=== PATIENT | male | born 1960 | race Caucasian/White ===

== ENCOUNTER → 2018-06-17 10:48 | Outpatient (CLI) | payer BC, SELFPAY ==
--- NOTE | 2018-06-17 11:00 | XR_ITS ---
XR foot RT min 3V Ordering Physician: Alberto Trujillo MD Patient Age: 58 years: Male HISTORY: ITS.REASON: BILAT FOOT PAIN diabetic withBilateral feet pain. No injury. TECHNIQUE: Right foot 3 view Left foot 3 view COMPARISON :No studies prior to today . ======= RIGHT FOOT, Prominent severe arthritic changes at first MTP joint. Joint space narrowing, sclerosis, marginal osteophytes about this markedly narrowed arthritic joint. Subchondral cystic changes. The other toes are intact fairly well maintained with only some scant arthritic changes questioned at the PIP joint of the second toe otherwise noted. The MTP joints are intact. Metatarsals intact. Tarsals unremarkable. Adequate plantar arch. Bones well mineralized. Calcification is present insertion of Achilles tendon at posterior calcaneus noted. IMPRESSION : Right Foot.. Severe, advanced arthritic changes at first MTP joint ========= LEFT FOOT . Less pronounced arthritic changes at left first MTP joint.( Versus right) However there is narrowing and sclerosis about the first MTP joint. With Mild marginal osteophyte formation here on the left. The other toes appear intact. Remaining MTP joints intact. Metatarsals intact. There is some hypertrophic changes and associated mild cystic changes at the hypertrophic dorsal lip of the navicular. Mild sclerosis is seen here but talar the ventricular joint is fairly well maintained. Likely early arthritic changes here however. . Moderate deep millimeters length spurring is seen at the insertion Achilles tendon. Only tiny 3-4 mm plantar calcaneal spur on left. Adequate plantar arch. Unusually Prominent accessory ossicle overlying the cuboid-calcaneal articulation the left. This feature measures up to 18 mm length IMPRESSION: Arthritic changes at the first MTP joint on the left, (less pronounced than right first MTP) . Early hypertrophic lipping and mild arthritic changes at the dorsal margin of the proximal navicular. Suggesting early arthritic changes along dorsal aspect of left talonavicular joint
== END ==
PROVIDERS: PCP Internal Medicine Adolescent Medicine; Visit Provider Internal Medicine Adolescent Medicine
DX: M79.672 Pain in left foot (principal); M79.671 Pain in right foot
CPT/HCPCS: 73630

== ENCOUNTER 2019-11-14 19:08 | Observation (INO) | payer BC, SELFPAY ==
[2019-11-14 19:22] VITALS: BP 148/73; PULSE 98; RESP 17; TEMP 36.9; O2SAT 99; BMI 31.9
--- NOTE | 2019-11-14 19:30 | CT_ITS ---
PROCEDURE: CT ABDOMEN PELVIS WO CON CLINICAL INDICATION: rule out kidney stones Right flank pain with nausea and vomiting COMPARISON: No exams were available for comparison TECHNIQUE: Axial images obtained with sagittal and coronal reformats. All CT scans at the facility use one or more dose reduction, viz: automated exposure control, ma/kV adjustment per patient size (including targeted exams where dose is matched to indication, i.e. head), or iterative reconstruction technique. FINDINGS: LOWER THORAX: Coronary artery calcifications are present. ABDOMEN & PELVIS: The liver, spleen, gallbladder, the adrenal glands, and pancreas have an unremarkable unenhanced appearance. There is mild right hydronephrosis and hydroureter secondary to a 4 mm stone in the mid aspect of the right ureter at the L4-5 level. There is mild stranding of the right perinephric renal fat. No intestinal obstruction or free air. There is colonic diverticulosis throughout the colon. No evidence of appendicitis or diverticulitis. There postsurgical changes at L4-5 with prior fusion and inter pedicular screws posteriorly. IMPRESSION: 1. 4 mm obstructing stone in the mid right ureter at the L4-5 level with mild right hydroureteronephrosis and stranding of the right perinephric renal fat 2. Colonic diverticulosis Dictated by: Grover Wu MD 11/15/2019 10:34 Electronically signed by Grover Wu MD in [place] 11/15/2019 10:34
[2019-11-14 19:41] LABS: Basophils # 0.2 K/mm3 (0-0.2); Basophils % 1.1 % (0.1-2.0); Eosinophils # 0.1 K/mm3 (0.0-0.4); Eosinophils % 0.8 % (0.1-12.0); Hematocrit 49.9 % (42.0-52.0); Hemoglobin 16.9 g/dL (14.1-18.0); Lymphocytes # 1.2 K/mm3 (0.7-4.5); Lymphocytes % 8.4 % (10-50); Mean Corpuscular HGB Conc 33.8 g/dL (31.8-35.4); Mean Corpuscular Hemoglobin 31.3 pg (27.0-31.2); Mean Corpuscular Volume 92.7 fl (80-94); Mean Platelet Volume 7.1 fl (7.4-10.4); Monocytes # 0.5 K/mm3 (0.1-1.0); Monocytes % 3.8 % (1.7-9.3); Neutrophils % 85.8 % (37.0-80.0); Platelet Count 260 K/mm3 (142-424); Red Blood Count 5.38 M/mm3 (4.60-6.20); Red Cell Distribution Width 13.1 % (11.5-17.5)
[2019-11-14 19:44] LABS: Chloride 100 mmol/L (98-107); Potassium 4.3 mmoL/L (3.5-5.1); Sodium 137 mmol/L (136-145)
[2019-11-14 19:46] LABS: Alanine Aminotransferase 25 U/L (12-78); Amylase 89 U/L (30-110); Aspartate Amino Transferase 32 U/L (17-59); Blood Urea Nitrogen 22 mg/dl (9-20); Creatinine Clearance Estimated 72 mL/min (50-200); Estimated Glomerular Filt Rate 52 ml/min (>60); GFR (African American) 63 ML/MIN (>60)
[2019-11-14 19:47] LABS: Albumin Level 4.9 g/dl (3.5-5.0); Albumin/Globulin Ratio 1.8 (1.1-1.8); Alkaline Phosphatase 56 U/L (38-126); Anion Gap 14.3 mEq/L (5-15); Bilirubin,Total 0.7 mg/dl (0.2-1.3); Calcium 9.7 mg/dl (8.4-10.2); Carbon Dioxide 27 mmol/L (22.0-30.0); Globulin 2.8 g/dL (1.3-3.2); Glucose 174 mg/dl (74-100); Lipase 102 U/L (23-300); Total Protein,Serum 7.7 g/dl (6.3-8.2)
--- NOTE | 2019-11-14 19:48 | HMH.EDGENADL ---
ED Disposition Condition on Discharge: Good - Critical Care Critical Care Time: No <DuartewyattNathalia heathRanjith - Last Filed: 11/14/19 19:48> <Huang Godinez - Last Filed: 11/14/19 21:43> Clinical Impression: Renal colic on right side, Renal insufficiency, SIRS (systemic inflammatory response syndrome) Disposition: Admitted as Observation Attestation: On 11/14/19, the high probability of a clinically significant, sudden or life threatening deterioration of the following system(s) required my full and direct attention, intervention and personal management. The time I documented below is in addition to time spent performing reported procedures but includes the following listed in this critical care notation. Medical Decision Making - Medical Records Medical records reviewed: Yes: I reviewed the patient's medical records. - Alexander Inquiry Pt receiving controlled substance: No <DuartewyattRanjith heath - Last Filed: 11/14/19 19:48> - Lab Data Lab results reviewed: Yes: I reviewed the patient's lab results. Result diagrams: 11/14/19 19:05 11/14/19 19:05 - CT Data CT Scan: Abdomen, Pelvis Time Received: 21:[address] Reviewed: Yes: I have viewed the radiologist's interpretation Preliminary Findings: Abnormal (4 mm rt stone ) - Physician Consults Physician Consulted: brent Reason -: Admission <Huang Godinez Emily - Last Filed: 11/14/19 21:43> Vital Signs: 11/14/19 19:22 11/14/19 21:20 Temperature 98.5 F 98.5 F Temperature Source Oral Oral Pulse Rate [Right Brachial] 98 H 65 Respiratory Rate 17 16 Blood Pressure [Right Arm] 148/73 H 145/82 H Blood Pressure Mean [Right Arm] 98 103 Blood Pressure Source [Right Arm] Automatic Cuff Automatic Cuff Blood Pressure Position [Right Arm] Sitting Sitting 02 Sat by Pulse Oximetry 99 97 Oxygen Delivery Method Room Air Room Air - Lab Data Lab Results 11/14/19 19:05: WBC 14.0 H, RBC 5.38, Hgb 16.9, Hct 49.9, MCV 92.7, MCH 31.3 H, MCHC 33.8, RDW 13.1, Plt Count 260, MPV 7.1 L, Neut % (Auto) 85.8 H, Lymph % (Auto) 8.4 L, [place] % (Auto) 3.8, Eos % (Auto) 0.8, Baso % (Auto) 1.1, Neut # (Auto) 12.0 H, Lymph # (Auto) 1.2, [place] # (Auto) 0.5, Eos # (Auto) 0.1, Baso # (Auto) 0.2, Total Counted 100, Neutrophils % (Manual) 86 H, Lymphocytes % (Manual) 10, Monocytes % (Manual) 4, Platelet Estimate Normal, RBC Morphology Normal 11/14/19 19:05: Sodium 137, Potassium 4.3, Chloride 100, Carbon Dioxide 27, Anion Gap 14.3, BUN 22 H, Creatinine 1.40 H, Estimated Creat Clear 72, Estimated GFR 52 L, Est GFR ( Amer) 63, Glucose 174 H, Calcium 9.7, Total Bilirubin 0.7, AST 32, ALT 25, Alkaline Phosphatase 56, Total Protein 7.7, Albumin 4.9, Globulin 2.8, Albumin/Globulin Ratio 1.8, Amylase 89, Lipase 102 Orders (Tests/Meds): ED MEDICATIONS Generic Name Dose Route Start Last Admin Trade Name Freq PRN Reason Stop Dose Admin Sodium Chloride 1,000 mls @ 999 mls/hr 11/14/19 20:45 11/14/19 20:53 Sod Chlor 0.9% 1000ml Bag IV 11/14/19 21:45 999 mls/hr .Q1H1M GIBRAN Administration Tamsulosin HCl 0.4 mg 11/14/19 21:00 11/14/19 20:53 Flomax 0.4mg Capsule PO 12/14/19 20:59 0.4 mg HS GIBRAN Administration Discontinued Medications Generic Name Dose Route Start Last Admin Trade Name Freq PRN Reason Stop Dose Admin Hydromorphone HCl 1 mg 11/14/19 20:54 Dilaudid 2mg/Ml Syringe IM 11/14/19 20:55 ONCE ONE Hydromorphone HCl 1 mg 11/14/19 21:05 11/14/19 21:06 Dilaudid 2mg/Ml Syringe IV 11/14/19 21:06 1 mg ONCE ONE Administration Ketorolac Tromethamine 30 mg 11/14/19 20:31 11/14/19 20:52 Toradol 30mg/Ml Vial IV 11/14/19 20:32 30 mg ONCE ONE Administration Ondansetron HCl 4 mg 11/14/19 20:31 11/14/19 20:52 Zofran 4mg/2ml Vial IV 11/14/19 20:32 4 mg ONCE ONE Administration ORDERS Category Date Time Status CT abdomen pelvis wo con Stat Cat Scan 11/14/19 19:30 Taken General Adult HPI - General Mode of Arrival: Ambulatory Source of In
[2019-11-14 19:50] LABS: MANUAL DIFFERENTIAL MANUAL DIFFERENTIAL (MANUAL DIFF)
--- NOTE | 2019-11-14 20:21 | PC.NURSE ---
received call from ananya zamudio to dr dominique
[2019-11-14 20:45] LABS: Lymphocytes % 10 % (10-50); Monocytes % 4 % (2-9); Neutrophils % 86 % (42-76); Platelet Estimate Normal; RBC Morphology Normal; Total Cells Counted 100
[2019-11-14 21:18] LABS: Microscopic, Urine URINE MICROSCOPIC (MICROSCOPIC)
[2019-11-14 21:20] VITALS: BP 145/82; PULSE 65; RESP 16; TEMP 36.9; O2SAT 97
[2019-11-14 21:41] LABS: Appearance,Urine CLEAR (Clear); Bilirubin,Urine Negative (Negative); Blood, Urine 3+ (Negative); Color,Urine YELLOW (Yellow); Glucose,Urine (UA) 3+ (Negative); Ketones,Urine TRACE (Negative); Leukocyte Esterase,Urine Negative (Negative); Nitrate,Urine Negative (Negative); Protein,Urine Negative (Negative); Specific Gravity, Urine 1.025 (1.005-1.030); Urobilinogen,Urine 0.2 EU/dl (0.2)
[2019-11-14 21:42] LABS: Bacteria,Urine Trace /lpf; RBC,Urine 20-50 #/hpf (0-3); Squamous Epithelial Cell,Urine Occasional #/hpf (0-5); WBC,Urine Occasional #/hpf (0-3)
[2019-11-14 21:57] VITALS: BP 135/71; PULSE 74; RESP 16; TEMP 36.9; O2SAT 98
[2019-11-14 22:00] VITALS: BP 131/79; PULSE 70; RESP 18; TEMP 36.7; O2SAT 97; BMI 32.6
--- NOTE | 2019-11-14 22:14 | PC.NURSE ---
housesmith in department and er doc asked how much longer till patient moved to a bed. she placed call to floor and they will look moni it
--- NOTE | 2019-11-14 22:25 | PC.NURSE ---
PT ARRIVED TO FLOOR VIA W/C FROM ED @ 0745.
[2019-11-14 23:05] LABS: POC Glucose,Bedside 127 (70-110)
[2019-11-15 04:00] VITALS: BP 112/68; PULSE 64; RESP 18; TEMP 36.6; O2SAT 98
--- NOTE | 2019-11-15 06:00 | PC.NURSE ---
A&O X4. PT RESTED WELL WITH EYES CLOSED THIS SHIFT. CPAP USE FOR SLEEP APNEA, BROUGHT FROM HOME. PT RESTED WELL WITH CPAP IN USE. TOLERATED RA WELL WITHOUT CPAP WHILE AWAKE. REMAINS NPO THIS AM. C/O SEVERE PAIN IN KIDNEY REGION BILATERALLY IN BACK. RATING PAIN 9/10 AT MOST. ADMIN DILAUDID X2 AND TORDOL PER MAR. PT STATES DILAUDID EASES PAIN BETTER THAN TORDOL UPON REASSESSMENTS. USE OF URINAL INDEPENDENTLY AT BEDSIDE. STRAINER IN PLACE OVER URINAL. URINE NOTED CLEAR AND DARK YELLOW IN COLOR. NO SIGNS OF STONES PASSED THUS FAR THIS SHIFT. REFUSED TEDS. VSS. REMAINS SAFE. CALL LIGHT WITHIN REACH. WILL CONTINUE TO MONITOR.
[2019-11-15 06:10] LABS: POC Glucose,Bedside 112 (70-110)
[2019-11-15 07:02] LABS: Basophils # 0.1 K/mm3 (0-0.2); Eosinophils # 0.2 K/mm3 (0.0-0.4); Lymphocytes # 1.5 K/mm3 (0.7-4.5); Monocytes # 0.7 K/mm3 (0.1-1.0); Red Cell Distribution Width 13.4 % (11.5-17.5)
[2019-11-15 07:04] LABS: Chloride 106 mmol/L (98-107)
[2019-11-15 07:05] LABS: Potassium 4.7 mmoL/L (3.5-5.1); Sodium 139 mmol/L (136-145)
[2019-11-15 07:07] LABS: Blood Urea Nitrogen 25 mg/dl (9-20); Creatinine Clearance Estimated 73 mL/min (50-200); Estimated Glomerular Filt Rate 52 ml/min (>60); GFR (African American) 63 ML/MIN (>60)
[2019-11-15 07:08] LABS: Anion Gap 9.7 mEq/L (5-15); Calcium 8.8 mg/dl (8.4-10.2); Carbon Dioxide 28 mmol/L (22.0-30.0); Glucose 127 mg/dl (74-100)
[2019-11-15 07:11] LABS: Basophils % 0.6 % (0.1-2.0); Eosinophils % 1.4 % (0.1-12.0); Hematocrit 42.1 % (42.0-52.0); Lymphocytes % 12.8 % (10-50); Mean Corpuscular HGB Conc 34.7 g/dL (31.8-35.4); Mean Corpuscular Hemoglobin 32.1 pg (27.0-31.2); Mean Corpuscular Volume 92.7 fl (80-94); Mean Platelet Volume 6.9 fl (7.4-10.4); Monocytes % 5.8 % (1.7-9.3); Neutrophils # 9.1 K/mm3 (1.8-7.8); Neutrophils % 79.3 % (37.0-80.0); Platelet Count 212 K/mm3 (142-424); Red Blood Count 4.54 M/mm3 (4.60-6.20); White Blood Count 11.4 K/mm3 (4.8-10.8)
[2019-11-15 07:12] LABS: Hemoglobin 14.6 g/dL (14.1-18.0)
--- NOTE | 2019-11-15 07:26 | HMH.PHAVTE ---
[facility] Pharmacy VTE Monitoring - Patient Demographics Admission date: 11/14/19 Report Date: 11/15/19 Time: 07:26 Allergies/Adverse Reactions: Patient Allergies Penicillins Allergy (Verified 11/14/19 19:37) codeine [From Tylenol-Codeine #3] Adverse Reaction (Intermediate, Verified 11/14/19 19:37) Hives Height: 1.65 m Weight: 88.932 kg Patient Problems: Current Active Problems Renal colic on right side (Acute) Renal insufficiency (Acute) SIRS (systemic inflammatory response syndrome) (Acute) - VTE Risk Labs: VTE Related Lab Results Hgb 14.6 g/dL (14.1-18.0) D 11/15/19 06:33 Hct 42.1 % (42.0-52.0) 11/15/19 06:33 Plt Count 212 K/mm3 (142-424) 11/15/19 06:33 BUN 25 mg/dl (9-20) H 11/15/19 06:33 Creatinine 1.40 mg/dl (0.66-1.25) H 11/15/19 06:33 Estimated Creat Clear 73 mL/min (50-200) 11/15/19 06:33 Was VTE Risk Assessment Performed: Yes VTE Score: 4 VTE Risk Level: Low Risk Clinical Trial Participant: No - Prophylaxis VTE Prophylaxis Ordered?: Yes Types of VTE Prophylaxis: TEDS Knee High
--- NOTE | 2019-11-15 07:30 | HMH.PHAINT ---
HOME MEDICATION RECONCILIATION COMPLETED [facility]
[2019-11-15 08:00] VITALS: BP 134/73; PULSE 65; PULSE 70; RESP 12; RESP 18; TEMP 36.5; O2SAT 97
--- NOTE | 2019-11-15 08:10 | HMH.HP ---
*Admission Date: 11/14/19 *Chief complaint: Flank pain *History of present illness: Yesterday patient of the sudden onset of right-sided flank pain, nausea, intractable pain. Has a history of kidney stones. Came to emergency department. Found to have evidence of hematuria, evidence of 4 mm obstructing stone on the right side, admitted for pain control and further evaluation. [facility] History I have reviewed the patient's past medical history: Yes Medical History: Reports:: Diabetes Mellitus Type 2, Hyperlipidemia, Hypertension, Myocardial Infarction Denies:: Cancer, Diabetes Mellitus Type 1, MRSA *Have you ever received a pneumonia vaccine?: No *Have you received a flu vaccine this season?: Yes Other Medical History: Reports: Arthritis Other Surgeries: Yes: No Previous Surgery, Cardiac Catheterization, Hernia Repair Amputation: No Fractures: No - *Social History Educational Level: Attended College Smoking Status: Former smoker #Yrs smoked (if former smoker): 20 Smoking End Date: 2000 Alcohol Intake: current Alcohol Intake Frequency:: holidays/special occasions only *Occupational Status:: employed Housing: house Household Members: spouse *Travel in the last 8 weeks: None Family Hx:: Cancer, Diabetes Review of Systems - Review of Systems Review of systems:: pertinent systems reviewed and negative unless documented below Meds Home Medications Medication Instructions Recorded Confirmed Type lisinopril 20 0.5 tab PO DAILY 30 Days #15 tab 07/12/18 11/15/19 History mg-hydrochlorothiazide 25 mg tablet meloxicam 15 mg tablet 15 mg PO DAILY 30 Days #30 tab 07/12/18 11/15/19 History metformin 500 mg tablet 500 mg PO BID 30 Days #60 tab 07/12/18 11/15/19 History Aspirin [Aspir 81] 81 mg PO DAILY 11/14/19 11/15/19 History Cholecalciferol (Vitamin D3) 1,000 unit PO DAILY 11/14/19 11/15/19 History [Vitamin D3 1,000 Unit Cap] Gabapentin [Gabapentin 100mg Cap] 100 mg PO BID 11/14/19 11/15/19 History Atorvastatin Calcium [Atorvastatin 40 mg PO HS 11/15/19 11/15/19 History 40mg Tab] Allergies Allergy/AdvReac Type Severity Reaction Status Date / Time Penicillins Allergy Verified 11/14/19 19:37 codeine AdvReac Intermediate Hives Verified 11/14/19 19:37 [From Tylenol-Codeine #3] Exam Vital signs and Labs for Last 24 Hours: Temp Pulse Resp BP Pulse Ox 97.8 F 64 18 112/68 98 11/15/19 04:00 11/15/19 04:00 11/15/19 04:00 11/15/19 04:00 11/15/19 04:00 Laboratory Results - last 24 hr 11/14/19 19:05: WBC 14.0 H, RBC 5.38, Hgb 16.9, Hct 49.9, MCV 92.7, MCH 31.3 H, MCHC 33.8, RDW 13.1, Plt Count 260, MPV 7.1 L, Neut % (Auto) 85.8 H, Lymph % (Auto) 8.4 L, [place] % (Auto) 3.8, Eos % (Auto) 0.8, Baso % (Auto) 1.1, Neut # (Auto) 12.0 H, Lymph # (Auto) 1.2, [place] # (Auto) 0.5, Eos # (Auto) 0.1, Baso # (Auto) 0.2, Total Counted 100, Neutrophils % (Manual) 86 H, Lymphocytes % (Manual) 10, Monocytes % (Manual) 4, Platelet Estimate Normal, RBC Morphology Normal 11/14/19 19:05: Sodium 137, Potassium 4.3, Chloride 100, Carbon Dioxide 27, Anion Gap 14.3, BUN 22 H, Creatinine 1.40 H, Estimated Creat Clear 72, Estimated GFR 52 L, Est GFR ( Amer) 63, Glucose 174 H, Calcium 9.7, Total Bilirubin 0.7, AST 32, ALT 25, Alkaline Phosphatase 56, Total Protein 7.7, Albumin 4.9, Globulin 2.8, Albumin/Globulin Ratio 1.8, Amylase 89, Lipase 102 11/14/19 21:15: Urine Color Yellow, Urine Appearance Clear, Urine pH 6.0, Ur Specific [place] 1.025, Urine Protein Negative, Urine Glucose (UA) 3+, Urine Ketones Trace, Urine Blood 3+, Urine Nitrate Negative, Urine Bilirubin Negative, Urine Urobilinogen 0.2, Ur Leukocyte Esterase Negative, Urine RBC 20-50, Urine WBC Occasional, Ur Squamous Epith Cells Occasional, Urine Bacteria Trace 11/14/19 22:58: POC Glucose 127 H 11/15/19 05:10: POC Glucose 112 H 11/15/19 06:33: WBC 11.4 H, RBC 4.54 L, Hgb 14.6 D, Hct 42.1, MCV 92.7, MCH 32.1 H, MCHC 34.7, RDW 13.4, Plt Count 212, MPV 6.9 L, Neut % (Auto) 7
[2019-11-15 11:24] LABS: POC Glucose,Bedside 161 (70-110)
[2019-11-15 16:00] VITALS: BP 128/74; PULSE 66; RESP 14; TEMP 36.6; O2SAT 98
[2019-11-15 16:22] LABS: POC Glucose,Bedside 122 (70-110)
--- NOTE | 2019-11-15 17:54 | PC.NURSE ---
Pt has reported pain in his right kidney several times this shift. He says it is sharp in nature and radiates from his right flank to right side of abdomen. He was given prn dilaudid per mar with relief noted on reassessment. He went outside for approx 15 minutes with his to get some sunshine and fresh air . Off floor consent was signed and IV wrapped per protocol. He stated the sun made him feel much better. He had one episode of vomiting around dinner time. Zofran was offered but refused. He reported feeling full rather than nauseous. Urine has been strained with no findings to report. Will continue to monitor.
--- NOTE | 2019-11-15 19:08 | PC.NURSE ---
report given to frantz
[2019-11-15 19:54] VITALS: BP 150/86; PULSE 71; RESP 18; TEMP 36.4; O2SAT 97
[2019-11-15 22:01] LABS: POC Glucose,Bedside 99 (70-110)
[2019-11-16] VITALS (12 sets, daily range): BP systolic 128–161; BP diastolic 51–104; PULSE 65–92; RESP 12–18; TEMP 36.3–43; O2SAT 92–98; BMI 32.6
[2019-11-16 05:29] LABS: POC Glucose,Bedside 98 (70-110)
--- NOTE | 2019-11-16 06:06 | PC.NURSE ---
A&O X4. PT RESTED WELL WITH EYES CLOSED T/O SHIFT. CPAP IN USE WHILE RESTING IN BED. TOLERATES RA WELL, NO SOA. BILATERAL LUNGS NOTED CLEAR UPON AUSCULTATION. URINAL AT BEDSIDE WITH STRAINER FOR USE. URINE NOTED CLEAR AND BRIGHT YELLOW IN COLOR. NO SIGN OF STONE PASSED IN STRAINER. C/O PAIN T/O SHIFT IN KIDNEY REGION. ADMINISTERED DILAUDID PER MAR FOR RELIEF X2. NO FURTHER COMPLAINTS POST ADMIN. VSS. REMAINS NPO. REFUSED SHOWER/BATH THIS AM FOR CONSULT. REFUSED TEDS. NO EDEMA NOTED. REMAINS SAFE. CALL LIGHT WITHIN REACH. WILL CONTINUE TO MONITOR.
[2019-11-16 07:04] LABS: Basophils % 0.4 % (0.1-2.0); Lymphocytes # 1.5 K/mm3 (0.7-4.5); Monocytes # 0.4 K/mm3 (0.1-1.0)
[2019-11-16 07:20] LABS: Anion Gap 10.2 mEq/L (5-15); Blood Urea Nitrogen 20 mg/dl (9-20); Calcium 8.1 mg/dl (8.4-10.2); Carbon Dioxide 24 mmol/L (22.0-30.0); Chloride 106 mmol/L (98-107); Creatinine Clearance Estimated 68 mL/min (50-200); Estimated Glomerular Filt Rate 48 ml/min (>60); GFR (African American) 58 ML/MIN (>60); Glucose 98 mg/dl (74-100); Potassium 4.2 mmoL/L (3.5-5.1); Sodium 136 mmol/L (136-145)
[2019-11-16 07:29] LABS: Eosinophils # 0.2 K/mm3 (0.0-0.4); Eosinophils % 2.2 % (0.1-12.0); Hematocrit 38.3 % (42.0-52.0); Lymphocytes % 20.9 % (10-50); Mean Corpuscular HGB Conc 33.2 g/dL (31.8-35.4); Mean Corpuscular Hemoglobin 31.4 pg (27.0-31.2); Mean Corpuscular Volume 94.6 fl (80-94); Monocytes % 4.7 % (1.7-9.3); Neutrophils # 5.3 K/mm3 (1.8-7.8); Neutrophils % 71.8 % (37.0-80.0); Platelet Count 173 K/mm3 (142-424); Red Blood Count 4.05 M/mm3 (4.60-6.20); Red Cell Distribution Width 13.2 % (11.5-17.5); White Blood Count 7.4 K/mm3 (4.8-10.8)
[2019-11-16 07:37] LABS: Hemoglobin 12.7 g/dL (14.1-18.0)
--- NOTE | 2019-11-16 08:13 | XR_ITS ---
PROCEDURE: XR KUB CLINICAL INDICATION: f/u stone Right ureteral stone follow-up, right flank pain COMPARISON: CT ABDOMEN PELVIS WO CON from 11/14/2019 FINDINGS: Prior posterior fusion at L4-5 with inter pedicular screws and connecting plates present. There are multiple pelvic calcifications on both sides which are nonspecific. No obvious renal calculi. IMPRESSION: There are multiple pelvic calcifications most of which are likely vascular in nature. One however cannot exclude ureteral calculus on the right due to the multiple calcifications at this region. Previously a stone was noted to the right of L5. That is not apparent in the same position on today's exam Dictated by: Grover Wu MD 11/16/2019 13:33 Electronically signed by Grover Wu MD in [place] 11/16/2019 13:33
--- NOTE | 2019-11-16 08:56 | HMH.ACPN2 ---
Internal Medicine - PN: Subj *Date: 11/16/19 *Time: 08:56 Interval history: Patient continues to have pain overnight. Required 2 doses of pain medication. Tolerating IV fluids, straining urine. No stones have passed as of yet. N.p.o. this morning for urology consult, appreciate their recommendations. States he is got some mild nausea. Denies fever, chest pain, shortness of breath. Still having flank pain. Exam Vital signs and Labs for Last 24 Hours: Temp Pulse Resp BP Pulse Ox 97.9 F 82 17 131/51 L 97 11/16/19 04:00 11/16/19 04:00 11/16/19 04:00 11/16/19 04:00 11/16/19 04:00 Laboratory Results - last 24 hr 11/15/19 11:07: POC Glucose 161 H 11/15/19 16:04: POC Glucose 122 H 11/15/19 21:43: POC Glucose 99 11/16/19 05:02: POC Glucose 98 11/16/19 06:27: WBC 7.4 D, RBC 4.05 L, Hgb 12.7 L D, Hct 38.3 L, MCV 94.6 H, MCH 31.4 H, MCHC 33.2, RDW 13.2, Plt Count 173, MPV 7.0 L, Neut % (Auto) 71.8, Lymph % (Auto) 20.9, [place] % (Auto) 4.7, Eos % (Auto) 2.2, Baso % (Auto) 0.4, Neut # (Auto) 5.3, Lymph # (Auto) 1.5, [place] # (Auto) 0.4, Eos # (Auto) 0.2, Baso # (Auto) 0.0 11/16/19 06:27: Sodium 136, Potassium 4.2, Chloride 106, Carbon Dioxide 24, Anion Gap 10.2, BUN 20, Creatinine 1.50 H, Estimated Creat Clear 68, Estimated GFR 48 L, Est GFR ( Amer) 58 L, Glucose 98 D, Calcium 8.1 L I & O for Last 24 hours: Intake & Output 11/13/19 11/14/19 11/15/19 11/16/19 23:59 23:59 23:59 23:59 Intake Total 2665 / 2665 Output Total 725 / 725 100 / 100 Balance 1940 / 194 -100 / -100 Weight 88.932 kg 88.9 kg Narrative: General: No acute distress, obese. - *Routine HEENT Exam Head: Present: normocephalic Eye: Present: EOMI, PERRL ENT: Present: mucous membranes moist - *Routine Neck Exam Present: supple. Absent: lymphadenopathy - *Routine Respiratory Exam Present: CTA bilaterally - *Routine Cardiovascular Exam Present: RRR - *Routine Abdominal Exam Present: soft. Absent: tenderness Comments: Interval improvement and right-sided flank pain. No CVA tenderness. No rebound or guarding. No bruising in the periumbilical area. - *Routine Extremities Exam Absent: cyanosis, clubbing, edema - *Routine Skin Exam Present: warm. Absent: rash - *Routine Neurological Exam Present: alert, oriented X3 Assessment and Plan (1) Right nephrolithiasis Current visit: Yes Status: Acute Category: Medical Code(s): N20.0 - Calculus of kidney Obstructing, uro-consulted. Continue tamsulosin, IV fluids, straining urine. Antibiotics for concern for infection. Awaiting intervention from urology. (2) Renal colic on right side Current visit: Yes Status: Acute Category: Medical Code(s): N23 - Unspecified renal colic (3) Renal insufficiency Current visit: Yes Status: Acute Category: Medical Code(s): N28.9 - Disorder of kidney and ureter, unspecified (4) Obesity (BMI 30.0-34.9) Current visit: Yes Status: Chronic Category: Medical Code(s): E66.9 - Obesity, unspecified Complicates all aspects of his care
--- NOTE | 2019-11-16 11:39 | HMH.CONS ---
*Admission Date: 11/14/19 *Reason for consult:: Right ureteral stone *History of present illness: Patient is a 59-year-old white male with right renal colic who presented to the emergency room on November 13. Patient was admitted for pain control. CT scan showed a 4 mm stone in the mid ureter with some mild right hydronephrosis and hydroureter. Creatinine was elevated to 1.4 on admission and is 1.5 today. His white count was 14,000 on admission but has decreased to normal. He has continued to have some nausea and pain while hospitalized. He states he is miserable and would like to proceed with stone management. He does have a distant history of stone disease and underwent lithotripsy 15 years ago. [facility] History Medical History: Reports:: Diabetes Mellitus Type 2, Hyperlipidemia, Hypertension, Myocardial Infarction Denies:: Cancer, Diabetes Mellitus Type 1, MRSA *Have you ever received a pneumonia vaccine?: No *Have you received a flu vaccine this season?: Yes Other Medical History: Reports: Arthritis Other Surgeries: Yes: No Previous Surgery, Cardiac Catheterization, Hernia Repair Amputation: No Fractures: No - *Social History Educational Level: Attended College Smoking Status: Former smoker #Yrs smoked (if former smoker): 20 Smoking End Date: 2000 Alcohol Intake: current Alcohol Intake Frequency:: holidays/special occasions only *Occupational Status:: employed Housing: house Household Members: spouse *Travel in the last 8 weeks: None Family Hx:: Cancer, Diabetes Review of Systems - Review of Systems Review of systems:: pertinent systems reviewed and negative unless documented below Meds Home Medications Medication Instructions Recorded Confirmed Type lisinopril 20 0.5 tab PO DAILY 30 Days #15 tab 07/12/18 11/15/19 History mg-hydrochlorothiazide 25 mg tablet meloxicam 15 mg tablet 15 mg PO DAILY 30 Days #30 tab 07/12/18 11/15/19 History metformin 500 mg tablet 500 mg PO BID 30 Days #60 tab 07/12/18 11/15/19 History Aspirin [Aspir 81] 81 mg PO DAILY 11/14/19 11/15/19 History Cholecalciferol (Vitamin D3) 1,000 unit PO DAILY 11/14/19 11/15/19 History [Vitamin D3 1,000 Unit Cap] Gabapentin [Gabapentin 100mg Cap] 100 mg PO BID 11/14/19 11/15/19 History Atorvastatin Calcium [Atorvastatin 40 mg PO HS 11/15/19 11/15/19 History 40mg Tab] Allergies Allergy/AdvReac Type Severity Reaction Status Date / Time Penicillins Allergy Verified 11/14/19 19:37 codeine AdvReac Intermediate Hives Verified 11/14/19 19:37 [From Tylenol-Codeine #3] Exam Vital signs and Labs for Last 24 Hours: Temp Pulse Resp BP Pulse Ox 97.5 F L 75 18 139/71 98 11/16/19 08:00 11/16/19 08:00 11/16/19 08:00 11/16/19 08:00 11/16/19 08:00 Laboratory Results - last 24 hr 11/15/19 16:04: POC Glucose 122 H 11/15/19 21:43: POC Glucose 99 11/16/19 05:02: POC Glucose 98 11/16/19 06:27: WBC 7.4 D, RBC 4.05 L, Hgb 12.7 L D, Hct 38.3 L, MCV 94.6 H, MCH 31.4 H, MCHC 33.2, RDW 13.2, Plt Count 173, MPV 7.0 L, Neut % (Auto) 71.8, Lymph % (Auto) 20.9, [place] % (Auto) 4.7, Eos % (Auto) 2.2, Baso % (Auto) 0.4, Neut # (Auto) 5.3, Lymph # (Auto) 1.5, [place] # (Auto) 0.4, Eos # (Auto) 0.2, Baso # (Auto) 0.0 11/16/19 06:27: Sodium 136, Potassium 4.2, Chloride 106, Carbon Dioxide 24, Anion Gap 10.2, BUN 20, Creatinine 1.50 H, Estimated Creat Clear 68, Estimated GFR 48 L, Est GFR ( Amer) 58 L, Glucose 98 D, Calcium 8.1 L I & O for Last 24 hours: Intake & Output 11/13/19 11/14/19 11/15/19 11/16/19 23:59 23:59 23:59 23:59 Intake Total 2665 / 2665 2336 / 2336 Output Total 725 / 725 375 / 375 Balance 1939 / 1939 Weight 88.932 kg 88.9 kg Narrative: Moderately obese white male in no apparent distress Pupils equal round reactive to light Head is normocephalic Neck is symmetric Normal respiratory effort Abdomen soft nondistended Alert and oriented x3 Internal Medicine - CN: Reslt - Labs CBC & Chem 7:
[2019-11-16 11:44] LABS: POC Glucose,Bedside 107 (70-110)
[2019-11-16 12:15] LABS: Coronavirus 19 IgG Antibody Negative (Negative); Coronavirus 19 IgM Antibody Negative (Negative)
--- NOTE | 2019-11-16 13:57 | PC.NURSE ---
pt to surgery at this time.
--- NOTE | 2019-11-16 15:21 | P.PN_ITS ---
[facility] Anesthesia Checklist - Structural Data Admitted From: Inpatient Planned Operative Procedure/s: ureteroscopy Consent for Planned Operative Procedure(s) Verified: Yes - Airway Assessment C-Spine Mobility Assessed: Yes TMJ Mobility Assessed: Yes Dentition: Good Dentition - Neurological Assessment Level of Consciousness: Awake, Alert, Appropriate - Anesthesia Plan Anesthesia Risk discussed: Yes Anesthesia Plan: Verified ASA Class: II Anesthesia Type: General [facility] History I have reviewed the patient's past medical history: Yes Medical History: Reports:: Diabetes Mellitus Type 2, Hyperlipidemia, Hypertension, Myocardial Infarction Denies:: Cancer, Diabetes Mellitus Type 1, MRSA *Have you ever received a pneumonia vaccine?: No *Have you received a flu vaccine this season?: Yes Other Medical History: Reports: Arthritis Anesthesia experience/problems:: none Other Surgeries: Yes: No Previous Surgery, Cardiac Catheterization, Hernia Repair Amputation: No Fractures: No - *Social History Educational Level: Attended College Smoking Status: Former smoker #Yrs smoked (if former smoker): 20 Smoking End Date: 2000 Alcohol Intake: current Alcohol Intake Frequency:: holidays/special occasions only Substance Use Type: denies use *Occupational Status:: employed Housing: house Household Members: spouse *Travel in the last 8 weeks: None Family Hx:: Cancer, Diabetes
--- NOTE | 2019-11-16 16:04 | FL_ITS ---
PROCEDURE: FL URETHROCYSTOGRAM RETRO CLINICAL INDICATION: RIGHT URETEROSCOPY WITH STONE REMOVAL. C-ARM GUIDNACE USED. COMPARISON: CT ABDOMEN PELVIS WO CON from 11/14/2019 XR KUB from 11/16/2019 FINDINGS: Fluoroscopy time: 2 minutes and 21 seconds Multiple images are obtained during the procedure demonstrating insertion of a balloon catheter in the distal ureter which was inflated. A right ureteral stent was then placed in satisfactory position. Please correlate with fluoroscopic findings. IMPRESSION: Interval insertion of right ureteral stent Dictated by: Grover Wu MD 11/16/2019 16:19 Electronically signed by Grover Wu MD in [place] 11/16/2019 16:19
--- NOTE | 2019-11-16 16:12 | HMH.ANESI ---
[facility] Anesthesia Record Part I Intake, IV Amount: 1,200 Estimated blood loss (mL): 0 Urine output (mL): 0 Blood Pressure: 157/104 SaO2: 92 Pulse Rate: 92 Respiratory Rate: 12 Temperature: 97.6 F Patient is:: Awake, Stable Stable to PACU at:: 16:10
--- NOTE | 2019-11-16 16:26 | P.OP_ITS ---
Date of procedure: 11/16/19 Pre-op Diagnosis:: 5 mm right ureteral stone Post-op Diagnosis:: Right ureteral stone, dense right ureteral stricture Procedure performed:: Right ureteroscopy, attempted dilation of the dense right ureteral stricture, laser lithotripsy, stone extraction and right stent placement Surgeon:: Douglas Nur MD DAYCARE TEACHER:: Nadeem Drew Anesthesia: GETA Estimated blood loss (mL): 0 Clinical Note:: Patient is a 59-year-old white male with a 3-day history of right renal colic. CT scan is shown a 5 mm right ureteral stone. He continues to be symptomatic and wishes to proceed with stone extraction. Operative findings:: Patient with a dense right ureteral stricture which was resistant to dilation with the balloon and with ureteral sheath. Stone was noted to be above the stricture. Operative note:: Patient taken to the operating room after informed consent was obtained. Is placed on the operating table in the supine position and general anesthesia administered. He has been on preoperative IV antibiotics. Was placed into the dorsolithotomy position and prepped and draped in the standard surgical fashion. The 22 Upper Sorbian cystoscope passed into the urethra and passed into the bladder without difficulty. Bladder was examined in a systematic fashion there is no evidence of abnormalities. The ureteral orifices in their normal anatomic position. A guidewire was passed through the scope and into the right ureteral orifice and passed into the right renal pelvis without difficulty. Fluoroscopy revealed a calcification at the upper part of the distal ureter. The cystoscope then removed and semirigid ureteroscope passed into the bladder and into the right ureteral orifice but there was a stricture noted more proximally that restricted the passage of the scope any further. The ureteroscope removed and we passed a 4 x 15 mm balloon dilator over the guidewire and under fluoroscopy dilated the stricture but there was a persistent waist to the ureter on fluoroscopy. We then deflated the balloon and removed the balloon dilator repassed the ureteroscope we were able to get by the stricture with the scope and the stone was visualized. A 2.4 Upper Sorbian nitinol stone basket was used to grasp the stone and we could not bring it passed the stricture. We released the stone from the basket and removed the ureteroscope. Then decided to just laser the stone into smaller fragments but we were having some technical difficulties with the laser so while we were trying to get that fixed I attempted to dilate the ureter with the ureteral sheath dilators but again it was resistant to passage of the navigator sheath. I removed the sheath and repassed the ureteroscope and again engage the stone but cannot bring it through the stricture. We disengage the stone once again and were able to get the laser fiber working and broke the stone up into several pieces and the small pieces were then able to be removed with a stone basket. All stone fragments were removed and passed into the bladder. The ureteroscope was removed and the cystoscope was replaced and the guidewire was backloaded over the cystoscope and a 6 x 26 Upper Sorbian stent then passed over the guidewire without difficulty. Wire was removed and there was a good curl noted proximally and distally. The string was left on for later removal. Scope removed patient tolerated procedure well no complications. Condition: stable Disposition: PACU Specimens:: None Complications:: None
--- NOTE | 2019-11-16 16:51 | HMH.DCSUM ---
General - General Admission date:: 11/14/19 Discharge date: 11/16/19 HPI HPI: Yesterday patient of the sudden onset of right-sided flank pain, nausea, intractable pain. Has a history of kidney stones. Came to emergency department. Found to have evidence of hematuria, evidence of 4 mm obstructing stone on the right side, admitted for pain control and further evaluation. Hospital Course Hospital Course: Mr. Lomax was admitted for flank pain, renal colic, obstructing ureteral stone. Started on antibiotics and pain control. IV fluids were administered along with Tamsulosin to assist in passage of stone. He additionally was started on antibiotics for concern for obstructive uropathy and pyelonephritis in the setting of stranding seen on abdominal imaging. He unfortunately did not pass the stone spontaneously and was taken by urology to the OR where a stent was placed and a 4 mm stone was removed after lithotripsy performed with laser due to ureteral stricture. Stricture was preventing passage of stone. See urology operative report for full details. Syptomatic relief achieved with removal of stone. Patient medically stable for discharge home. Plan to continue pain regimen and antibiotics. We will have close follow-up with urology for further monitoring. Objective Vital signs: Temp Pulse Resp BP Pulse Ox 97.6 F 92 H 16 157/104 H 98 11/16/19 16:15 11/16/19 16:15 11/16/19 16:33 11/16/19 16:15 11/16/19 08:00 Narrative: General: No acute distress, obese. - *Routine HEENT Exam Head: Present: normocephalic Eye: Present: EOMI, PERRL ENT: Present: mucous membranes moist - *Routine Neck Exam Present: supple. Absent: lymphadenopathy - *Routine Respiratory Exam Present: CTA bilaterally - *Routine Cardiovascular Exam Present: RRR - *Routine Abdominal Exam Present: soft. Absent: tenderness - *Routine Extremities Exam Absent: cyanosis, clubbing, edema - *Routine Skin Exam Present: warm. Absent: rash - *Routine Neurological Exam Present: alert, oriented X3 Results Labs on day of discharge: Labs from last 24 hours 11/16/19 11/16/19 11/16/19 11:13 06:27 06:27 WBC RBC Hgb Hct MCV MCH MCHC RDW Plt Count MPV Neut % (Auto) Lymph % (Auto) [place] % (Auto) Eos % (Auto) Baso % (Auto) Neut # (Auto) Lymph # (Auto) [place] # (Auto) Eos # (Auto) Baso # (Auto) Sodium 136 Potassium 4.2 Chloride 106 Carbon Dioxide 24 Anion Gap 10.2 BUN 20 Creatinine 1.50 H Estimated Creat Clear 68 Estimated GFR 48 L Est GFR ( Amer) 58 L Glucose 98 D POC Glucose 107 Calcium 8.1 L SARS-CoV-2 IgG Ab (Rapid) Negative SARS-CoV-2 IgM Ab (Rapid) Negative 11/16/19 11/16/19 11/15/19 06:27 05:02 21:43 WBC 7.4 D RBC 4.05 L Hgb 12.7 L D Hct 38.3 L MCV 94.6 H MCH 31.4 H MCHC 33.2 RDW 13.2 Plt Count 173 MPV 7.0 L Neut % (Auto) 71.8 Lymph % (Auto) 20.9 [place] % (Auto) 4.7 Eos % (Auto) 2.2 Baso % (Auto) 0.4 Neut # (Auto) 5.3 Lymph # (Auto) 1.5 [place] # (Auto) 0.4 Eos # (Auto) 0.2 Baso # (Auto) 0.0 Sodium Potassium Chloride Carbon Dioxide Anion Gap BUN Creatinine Estimated Creat Clear Estimated GFR Est GFR ( Amer) Glucose POC Glucose 98 99 Calcium SARS-CoV-2 IgG Ab (Rapid) SARS-CoV-2 IgM Ab (Rapid) Preliminary micro results at discharge 11/14/19 21:15 Urine Culture - Preliminary Urine,Clean Catch NO GROWTH AFTER 24 HOURS DS: Diagnosis - Discharge Diagnosis (1) Right nephrolithiasis Status: Resolved (2) Renal colic on right side Status: Acute (3) Renal insufficiency Status: Acute (4) Obesity (BMI 30.0-34.9) Status: Chronic Discharge Plan - Patient Discharge Instructions ACTIVITY: Continue current activity
[2019-11-16 17:27] LABS: POC Glucose,Bedside 111 (70-110)
--- NOTE | 2019-11-16 20:15 | PC.NURSE ---
Pt d/cd this evening per dr sanchez. Pt did unhook Mx himself and was very anxious/ standing in [address] to be d/cd. Did give d/c instructions to pt and he verbed understanding to call for f/u appt with Dr. Nur and Dr. Sanchez. Did note hematuria and pieces of stone prior to d/c when straining urine post op. Did also educate on leaving urethral stent in place until MD removed. Verbed understanding. VSS upon d/c.
--- NOTE | 2019-11-17 15:24 | P.PN_ITS ---
[facility] Anesthesia Record Part II Discharge Time: 16:40 Destination: floor PACU nurse assessment reviewed?: Yes Patient Condition:: Good Anesthesia Complications:: None Swallowing reflex intact?: Yes Cyanosis?: No Blood Pressure: 135/84 Pulse Rate: 76 Temperature: 97.4 F Mental Status: Alert & Oriented Pain level:: 3 Nausea and/or vomitting:: None Intake, IV Amount: 1,500
[2019-11-17 15:40] VITALS: BP 135/84; PULSE 76; TEMP 36.3
== END 2019-11-16 18:54 | disposition home or self-care (01) ==
LOC: ER 19:52 → 2ND 21:17
PROVIDERS: Emergency Medicine; Urology; Admitting Provider Internal Medicine Adolescent Medicine; Emergency Provider Family Medicine; PCP Internal Medicine Adolescent Medicine; Visit Provider Internal Medicine Adolescent Medicine
PROC: (CPT 52352; principal; 2019-11-16 14:30)
DX: N20.0 Calculus of kidney (principal); I10 Essential (primary) hypertension; E11.9 Type 2 diabetes mellitus without complications; Z79.84 Long term (current) use of oral hypoglycemic drugs; Z79.82 Long term (current) use of aspirin; N13.5 Crossing vessel and stricture of ureter without hydronephrosis
CPT/HCPCS: 52356; 52344; 36415; 74018; 74176; 74450; 76000; 80048; 80053; 81001; 82150; 82962; 83690; 85007; 85025; 86328; 87086; 96365; 96374; 96375; 99284; C1769; C2617; G0378; J1956; J2405; Q9967

== ENCOUNTER → 2020-05-01 11:47 | Outpatient (CLI) | payer BC, SELFPAY ==
--- NOTE | 2020-05-01 11:52 | XR_ITS ---
PROCEDURE: XR CERVICAL SPINE 2V CLINICAL INDICATION: S/P ADCF Follow-up cervical fusion COMPARISON: No exams were available for comparison FINDINGS: There is 3 mm anterolisthesis of C3 on C4 with degenerative disc disease at C3-C4. There is anterior bone plate at C4-C5 and C6 which is in good alignment. No evidence bone plate fracture. Anterior osteophytes are present at C3-C4. No prevertebral soft tissue swelling or air-fluid level. IMPRESSION: Status post anterior cervical disc fusion with good alignment at C4-C5 and C6. Degenerative disc disease at C3-C4 with 3 mm anterolisthesis of C3. Dictated by: Grover Wu MD 05/01/2020 12:16 Grover Wu MD in [place] 05/01/2020 12:16
== END ==
PROVIDERS: PCP Internal Medicine Adolescent Medicine; Visit Provider Neurological Surgery
DX: M47.22 Other spondylosis with radiculopathy, cervical region (principal); M50.30 Other cervical disc degeneration, unspecified cervical region; Z98.1 Arthrodesis status
CPT/HCPCS: 72040

== ENCOUNTER → 2021-03-12 12:27 | Outpatient (CLI) | payer BC, SELFPAY ==
--- NOTE | 2021-03-12 12:33 | XR_ITS ---
PROCEDURE: XR FEMUR LT 2V XR HIP LT 2-3V W/PELVIS CLINICAL INDICATION: LT HIP PAIN COMPARISON: CR XR HIP LT 2-3V W/PELVIS from 03/12/2021 FINDINGS: No fracture or dislocation. No lytic or blastic change. There is normal mineralization. Minimal osteoarthritic changes are present involving both hips as seen AP the pelvis. The postsurgical changes lower lumbar spine. Other findings:Vascular calcification is noted. IMPRESSION: No acute finding. Minimal osteoarthritic changes of the hips Dictated by: Grover Wu MD 03/12/2021 18:05 Grover Wu MD in [place] 03/12/2021 18:05
--- NOTE | 2021-03-12 12:33 | XR_ITS ---
PROCEDURE: XR FEMUR LT 2V XR HIP LT 2-3V W/PELVIS CLINICAL INDICATION: LT HIP PAIN COMPARISON: CR XR HIP LT 2-3V W/PELVIS from 03/12/2021 FINDINGS: No fracture or dislocation. No lytic or blastic change. There is normal mineralization. Minimal osteoarthritic changes are present involving both hips as seen AP the pelvis. The postsurgical changes lower lumbar spine. Other findings:Vascular calcification is noted. IMPRESSION: No acute finding. Minimal osteoarthritic changes of the hips Dictated by: Grover Wu MD 03/12/2021 18:05 Grover uW MD in [place] 03/12/2021 18:05
== END ==
LOC: RAD 12:29
PROVIDERS: PCP Internal Medicine Adolescent Medicine; Visit Provider Internal Medicine Adolescent Medicine
DX: M25.552 Pain in left hip (principal)
CPT/HCPCS: 73502; 73552

== ENCOUNTER → 2021-04-02 15:31 | Outpatient (CLI) | payer BC, SELFPAY ==
[2021-04-02 16:30] LABS: Basophils # 0.1 K/mm3 (0-0.2); Basophils % 0.8 % (0.1-2.0); Eosinophils # 0.2 K/mm3 (0.0-0.4); Eosinophils % 2.6 % (0.1-12.0); Hematocrit 47.6 % (42.0-52.0); Hemoglobin 15.5 g/dL (14.1-18.0); Lymphocytes % 22.7 % (10-50); Mean Corpuscular HGB Conc 32.5 g/dL (31.8-35.4); Mean Corpuscular Hemoglobin 31.4 pg (27.0-31.2); Mean Corpuscular Volume 96.7 fl (80-94); Mean Platelet Volume 7.3 fl (7.4-10.4); Monocytes # 0.5 K/mm3 (0.1-1.0); Monocytes % 5.9 % (1.7-9.3); Neutrophils # 5.9 K/mm3 (1.8-7.8); Platelet Count 275 K/mm3 (142-424); Red Blood Count 4.93 M/mm3 (4.60-6.20); Red Cell Distribution Width 13.9 % (11.5-17.5); White Blood Count 8.6 K/mm3 (4.8-10.8)
[2021-04-02 16:48] LABS: Alanine Aminotransferase 31 U/L (12-78); Albumin Level 4.4 g/dl (3.5-5.0); Albumin/Globulin Ratio 1.9 (1.1-1.8); Alkaline Phosphatase 46 U/L (38-126); Anion Gap 11.4 mEq/L (5-15); Aspartate Amino Transferase 27 U/L (17-59); Bilirubin,Total 0.4 mg/dl (0.2-1.3); Blood Urea Nitrogen 13 mg/dl (9-20); Calcium 9.3 mg/dl (8.4-10.2); Carbon Dioxide 28 mmol/L (22.0-30.0); Chloride 108 mmol/L (98-107); Chol/HDL Ratio 2.2 (1-3.5); Cholesterol 95 mg/dl (140-200); Estimated Glomerular Filt Rate 87 ml/min (>60); GFR (African American) 105 ML/MIN (>60); Globulin 2.3 g/dL (1.3-3.2); Glucose 97 mg/dl (74-100); HDL Cholesterol 43 mg/dl (40-60); Potassium 4.4 mmoL/L (3.5-5.1); Sodium 143 mmol/L (136-145); Total Protein,Serum 6.7 g/dl (6.3-8.2); Triglycerides 53 mg/dl (30-150); VLDL Cholesterol 11 mg/dL (0-40)
[2021-04-02 16:59] LABS: Direct LDL Cholesterol 47.38 mg/dL (100-129)
== END ==
LOC: LAB 15:32
PROVIDERS: Visit Provider Internal Medicine Adolescent Medicine
DX: I25.10 Atherosclerotic heart disease of native coronary artery without angina pectoris (principal); E11.9 Type 2 diabetes mellitus without complications; Z79.84 Long term (current) use of oral hypoglycemic drugs
CPT/HCPCS: 36415; 80053; 80061; 83036; 85025

== ENCOUNTER → 2021-05-31 08:24 | Outpatient (CLI) | payer BC, SELFPAY ==
[2021-05-31 09:11] LABS: Basophils % 0.6 % (0.1-2.0); Eosinophils # 0.3 K/mm3 (0.0-0.4); Eosinophils % 4.3 % (0.1-12.0); Hematocrit 48.9 % (42.0-52.0); Hemoglobin 16.5 g/dL (14.1-18.0); Lymphocytes # 1.2 K/mm3 (0.7-4.5); Mean Corpuscular HGB Conc 33.7 g/dL (31.8-35.4); Mean Corpuscular Hemoglobin 31.7 pg (27.0-31.2); Mean Platelet Volume 7.3 fl (7.4-10.4); Monocytes # 0.4 K/mm3 (0.1-1.0); Monocytes % 5.9 % (1.7-9.3); Neutrophils # 5.2 K/mm3 (1.8-7.8); Neutrophils % 72.1 % (37.0-80.0); Platelet Count 261 K/mm3 (142-424); White Blood Count 7.2 K/mm3 (4.8-10.8)
[2021-05-31 09:39] LABS: Chloride 105 mmol/L (98-107); Potassium 4.4 mmoL/L (3.5-5.1); Sodium 140 mmol/L (136-145)
[2021-05-31 09:41] LABS: Alanine Aminotransferase 34 U/L (12-78); Alkaline Phosphatase 50 U/L (38-126); Aspartate Amino Transferase 33 U/L (17-59); Bilirubin,Total 0.4 mg/dl (0.2-1.3); Blood Urea Nitrogen 20 mg/dl (9-20); Estimated Glomerular Filt Rate 76 ml/min (>60); GFR (African American) 93 ML/MIN (>60)
[2021-05-31 09:42] LABS: Albumin Level 4.5 g/dl (3.5-5.0); Albumin/Globulin Ratio 1.9 (1.1-1.8); Anion Gap 15.4 mEq/L (5-15); Calcium 9.4 mg/dl (8.4-10.2); Carbon Dioxide 24 mmol/L (22.0-30.0); Chol/HDL Ratio 3.4 (1-3.5); Cholesterol 115 mg/dl (140-200); Globulin 2.4 g/dL (1.3-3.2); Glucose 114 mg/dl (74-100); HDL Cholesterol 34 mg/dl (40-60); Total Protein,Serum 6.9 g/dl (6.3-8.2); Triglycerides 98 mg/dl (30-150); VLDL Cholesterol 20 mg/dL (0-40)
[2021-05-31 09:50] LABS: Hemoglobin A1C 5.8 % (4.0-6.0)
[2021-05-31 09:53] LABS: Direct LDL Cholesterol 63.64 mg/dL (100-129)
[2021-05-31 10:00] LABS: 25-OH Vitamin D, Total 30.8 ng/mL (30-100)
== END ==
LOC: LAB 08:24
PROVIDERS: Visit Provider Internal Medicine Adolescent Medicine
DX: I25.10 Atherosclerotic heart disease of native coronary artery without angina pectoris (principal); E11.9 Type 2 diabetes mellitus without complications; E55.9 Vitamin D deficiency, unspecified; Z79.84 Long term (current) use of oral hypoglycemic drugs
CPT/HCPCS: 36415; 80053; 80061; 82306; 83036; 85025

== ENCOUNTER → 2021-09-27 08:10 | Outpatient (CLI) | payer BC, SELFPAY ==
[2021-09-27 08:45] LABS: Hemoglobin A1C 5.9 % (4.0-6.0)
[2021-09-27 09:12] LABS: Anion Gap 14.4 mEq/L (5-15); Blood Urea Nitrogen 29 mg/dl (9-20); Calcium 9.3 mg/dl (8.4-10.2); Carbon Dioxide 28 mmol/L (22.0-30.0); Chloride 99 mmol/L (98-107); Estimated Glomerular Filt Rate 69 ml/min (>60); GFR (African American) 83 ML/MIN (>60); Glucose 106 mg/dl (74-100); Potassium 4.4 mmoL/L (3.5-5.1); Sodium 137 mmol/L (136-145)
== END ==
LOC: LAB 08:11
PROVIDERS: Visit Provider Internal Medicine Adolescent Medicine
DX: E11.9 Type 2 diabetes mellitus without complications (principal)
CPT/HCPCS: 36415; 80048; 83036

== ENCOUNTER → 2021-12-04 14:45 | Outpatient (CLI) | payer BC, SELFPAY ==
--- NOTE | 2021-12-04 14:50 | CT_ITS ---
FINAL REPORT CLINICAL HISTORY: LT INGUINAL PAIN COMPARISON: November 14, 2019 FINDINGS: Axial images through the pelvis were performed by computed tomography. Sagittal and coronal reconstruction images were performed. This study was performed with techniques to keep radiation doses as low as reasonably achievable (ALARA). Individualized dose reduction techniques using automated exposure control or adjustment of mA and/or kV according to the patient's size were employed. No fracture is identified. No dislocation identified. There are mild degenerative changes of the hips. There is postoperative change of the lumbar spine. The visualized portion of the appendix is normal. There is moderate vascular calcification. There are small bilateral fat containing inguinal hernias, left greater than right, stable from the prior exam. IMPRESSION: Small bilateral inguinal hernias, stable from prior. Reviewed, Interpreted and Dictated by Solomon Bloom III, MD Transcribed by Yonatan Ha Authenticated and [facility]
== END ==
LOC: RAD 14:46
PROVIDERS: PCP Internal Medicine Adolescent Medicine; Visit Provider Internal Medicine Adolescent Medicine
DX: R10.32 Left lower quadrant pain (principal)
CPT/HCPCS: 72192

== ENCOUNTER → 2021-12-24 08:28 | Outpatient (CLI) | payer BC, SELFPAY ==
--- NOTE | 2021-12-24 08:31 | ECG_ITS ---
APPROVED REPORT Exam: Resting ECG HR:75 bpm ECG Measurements Heart Rate 75 AXES VT 154 P 38 QRSd 84 QRS 66 QT 375 T 63 QTc 403 Conclusion SINUS RHYTHM LOW QRS VOLTAGE IN PRECORDIAL LEADS [QRS DEFLECTION < 1.0 mV IN CHEST LEADS] BORDERLINE ECG UNCONFIRMED REPORT Electronically signed by : Alberto Trujillo MD 12/25/2021 17:42:15
[2021-12-24 08:36] LABS: Microscopic, Urine URINE MICROSCOPIC (MICROSCOPIC)
[2021-12-24 10:12] LABS: Appearance,Urine CLEAR (Clear); Basophils # 0.1 K/mm3 (0-0.2); Bilirubin,Urine Negative (Negative); Blood, Urine Negative (Negative); Color,Urine YELLOW (Yellow); Eosinophils # 0.2 K/mm3 (0.0-0.4); Eosinophils % 2.4 % (0.1-12.0); Glucose,Urine (UA) 3+ (Negative); Hematocrit 51.8 % (42.0-52.0); Hemoglobin 15.7 g/dL (14.1-18.0); Ketones,Urine Negative (Negative); Leukocyte Esterase,Urine Negative (Negative); Lymphocytes # 1.7 K/mm3 (0.7-4.5); Lymphocytes % 17.7 % (10-50); Mean Corpuscular HGB Conc 30.3 g/dL (31.8-35.4); Mean Corpuscular Volume 99.1 fl (80-94); Monocytes # 0.6 K/mm3 (0.1-1.0); Monocytes % 6.5 % (1.7-9.3); Neutrophils % 72.5 % (37.0-80.0); Nitrate,Urine Negative (Negative); PH,Urine 5.5 (5.0-8.5); Platelet Count 401 K/mm3 (142-424); Protein,Urine Negative (Negative); Red Blood Count 5.22 M/mm3 (4.60-6.20); Red Cell Distribution Width 13.4 % (11.5-17.5); Specific Gravity, Urine >= 1.030 (1.005-1.030); Urobilinogen,Urine 0.2 EU/dl (0.2); White Blood Count 9.7 K/mm3 (4.8-10.8)
[2021-12-24 10:39] LABS: Anion Gap 14.4 mEq/L (5-15); Blood Urea Nitrogen 20 mg/dl (9-20); Calcium 9.6 mg/dl (8.4-10.2); Carbon Dioxide 25 mmol/L (22.0-30.0); Chloride 108 mmol/L (98-107); Estimated Glomerular Filt Rate 86 ml/min (>60); GFR (African American) 105 ML/MIN (>60); Glucose 113 mg/dl (74-100); Potassium 4.4 mmoL/L (3.5-5.1); Sodium 143 mmol/L (136-145)
[2021-12-24 10:41] LABS: Bacteria,Urine Trace /lpf; Squamous Epithelial Cell,Urine Occasional #/hpf (0-5); WBC,Urine Occasional #/hpf (0-3)
== END ==
LOC: LAB 08:29
PROVIDERS: PCP Internal Medicine Adolescent Medicine; Visit Provider Surgery
DX: U07.1 COVID-19 (principal); K40.90 Unilateral inguinal hernia, without obstruction or gangrene, not specified as recurrent
CPT/HCPCS: 36415; 80048; 81001; 85025; 93005; C9803; U0003; U0005

== ENCOUNTER → 2021-12-25 09:30 | Outpatient (CLI) | payer BC, SELFPAY ==
[2021-12-25 09:46] LABS: Influenza A, PCR Not Detected (NotDetected); Influenza B, PCR Not Detected (NotDetected)
[2021-12-25 10:22] LABS: Coronavirus 19, PCR Detected (NotDetected)
== END ==
PROVIDERS: PCP Internal Medicine Adolescent Medicine; Visit Provider Surgery
DX: K40.20 Bilateral inguinal hernia, without obstruction or gangrene, not specified as recurrent (principal); U07.1 COVID-19
CPT/HCPCS: C9803; U0003; U0005

== ENCOUNTER 2022-01-15 07:39 | Day surgery (SDC) | payer BC, SELFPAY ==
[2021-12-24 11:17] VITALS: BMI 27.4
[2022-01-14 13:13] VITALS: BMI 27.4
[2022-01-15] VITALS (17 sets, daily range): BP systolic 110–145; BP diastolic 60–82; PULSE 50–105; RESP 12–18; TEMP 36.1–43; O2SAT 92–97
[2022-01-15 08:23] LABS: POC Glucose,Bedside 120 (70-110)
--- NOTE | 2022-01-15 09:10 | P.PN_ITS ---
[facility] Anesthesia Checklist - Patient Identification Patient Identification: Arm Band - Structural Data Admitted From: Home Planned Operative Procedure/s: INguinal hernia repair Consent for Planned Operative Procedure(s) Verified: Yes - NPO Status Verified Time NPO: 00:00 - Additional verifications Anesthesia Reactions: No Hx Blood Transfusions: No Blood Transfusion Reaction: No - Anesthesia Plan Anesthesia Risk discussed: Yes Anesthesia Plan: Verified ASA Class: III Anesthesia Type: General [facility] History Medical History: Reports:: Diabetes Mellitus Type 2, Hyperlipidemia, Hypertension, Kidney Stones, Myocardial Infarction Denies:: Cancer, Diabetes Mellitus Type 1, Internal Pacemaker, MRSA, Seizures *Have you ever received a pneumonia vaccine?: No *Have you received a flu vaccine this season?: Yes Other Medical History: Reports: Arthritis. Denies: Blood Transfusion Reaction Anesthesia experience/problems:: None Other Surgeries: Yes: No Previous Surgery, Cardiac Catheterization, Hernia Repair, Other. No: Pacemaker Amputation: No Fractures: No - *Social History Last grade of school completed: High school graduate Smoking Status: Former smoker #Yrs smoked (if former smoker): 20 Alcohol Intake: current Alcohol Intake Frequency:: a few times a month Substance Use Type: denies use *Occupational Status:: employed Housing: house Household Members: spouse *Travel in the last 8 weeks: None Family Hx:: Cancer, Diabetes
--- NOTE | 2022-01-15 10:28 | HMH.OPNOTE ---
Date of procedure: 01/15/22 Pre-op Diagnosis:: Left inguinal hernia Post-op Diagnosis:: Same Procedure performed:: Open left inguinal hernia repair Surgeon:: Benitez Murrell MD MONITOR CAR OPERATOR:: Jayme Harrison Anesthesia: LMA Estimated blood loss (mL): 15 Operative findings:: Large complex pantaloon defect Operative note:: After informed consent was obtained the patient was taken to the operating room and placed in supine position. General anesthesia with laryngeal mask airway was achieved. His lower abdomen and groin/scrotum were prepped and draped in a sterile fashion. After infiltration with local anesthetic an oblique left groin incision was made. Dissection was taken with electrocautery through Felicia's fascia. The external aponeurosis was then transected sharply to the level of the external ring. The contents of the canal were carefully elevated. A densely adhered cord lipoma was resected from surrounding tissue. Further dissection revealed a complex pantaloon defect. An extra-large PerFix plug was secured in position with interrupted Ethibond. The overlying PerFix mesh was then secured to the shelving edge inferiorly and fascial margin superiorly with interrupted Ethibond. The external aponeurosis was reapproximated with running Vicryl suture. Felicia's fascia was closed in a similar manner. Skin was then reapproximated with running 3-0 Monocryl Stratafix. Dressings were applied and the patient was transferred to recovery in stable condition. Condition: stable Disposition: PACU Specimens:: None Complications:: No immediate
--- NOTE | 2022-01-15 10:31 | P.PN_ITS ---
[facility] Anesthesia Record Part I Intake, IV Amount: 800 Estimated blood loss (mL): 20 Urine output (mL): 0 Blood Pressure: 110/60 SaO2: 93 Pulse Rate: 96 Respiratory Rate: 13 Temperature: 97.7 F Patient is:: Drowsy, Oral/Nasal airway Stable to PACU at:: 10:28
[2022-01-15 10:45] LABS: Microscopic,Cath URINE MICROSCOPIC (MICROSCOPIC)
[2022-01-15 10:48] LABS: Appearance,Urine/Cath CLEAR (Clear); Bilirubin,Cath Negative (Negative); Blood, Urine/Cath Negative (Negative); Color,Urine/Cath YELLOW (Yellow); Glucose,Urine/Cath (UA) 3+ (Negative); Ketones,Urine/Cath Negative (Negative); Leukocyte Esterase,Cath Negative (Negative); Nitrate,Cath Negative (Negative); Protein,Urine/Cath Negative (Negative); Specific Gravity, Urine/Cath 1.025 (1.005-1.030); Urobilinogen,Cath 0.2 EU/dl (0.2)
[2022-01-15 10:49] LABS: POC Glucose,Bedside 145 (70-110)
--- NOTE | 2022-01-15 10:54 | ECG_ITS ---
APPROVED REPORT Exam: Resting ECG HR:103 bpm ECG Measurements Heart Rate 103 AXES WV 136 P 60 QRSd 78 QRS 46 QT 362 T 81 QTc 422 Conclusion SINUS TACHYCARDIA WITH FREQUENT VENTRICULAR PREMATURE COMPLEXES LOW QRS VOLTAGE [QRS DEFLECTION < 0.5/1.0 mV IN LIMB/CHEST LEADS] ABNORMAL ECG UNCONFIRMED REPORT Electronically signed by : Alberto Trujillo MD 01/15/2022 21:05:09
--- NOTE | 2022-01-15 10:56 | SUR.PHASEI ---
LATE ENTRY 1032 BS obtained with results of Candi. Siria Harrison CRNA notified. No new orders given at this time.
[2022-01-15 11:05] LABS: Bacteria,Urine/Cath TRACE /lpf; Squamous Epithelial Ur./Cath Occasional #/hpf (0-5)
--- NOTE | 2022-01-15 11:14 | SUR.PHASEI ---
LATE ENTRY 1057 Siria Harrison CRNA reviewed EKG. No new interventions/orders at this time. Okay'd pt to go to phase 2 when ready.
--- NOTE | 2022-01-15 11:44 | SUR.PHASEI ---
1030 called and gave detailed report to Kodak Boyd RN 1034 transported via stretcher to post op. vital signs stable. rates pain above knee at a 5. left pt in stable condition with Moise Liu RN at bedside.
--- NOTE | 2022-01-15 11:50 | PC.NURSE ---
Siria Harrison CRNA notified of monitor strip in PACU. Siria Harrison CRNA ordered EKG. EKG performed. Siria Harrison CRNA reviewed results at 10:57am. No new orders/interventions were given at this time. Pt denied chest pain, palpitations, and SOA. Siria Harrison CRNA okay'd pt to go to phase 2 and be discharged when ready.
--- NOTE | 2022-01-16 10:17 | P.PN_ITS ---
[facility] Anesthesia Record Part II Discharge Time: 11:34 Destination: Surgical Day Care (OP Surgery) PACU nurse assessment reviewed?: Yes Patient Condition:: Good Anesthesia Complications:: None Swallowing reflex intact?: Yes Cyanosis?: No Blood Pressure: 133/61 Pulse Rate: 97 Temperature: 97 F Mental Status: Alert & Oriented Pain level:: 2 Nausea and/or vomitting:: None Intake, IV Amount: 0
[2022-01-16 10:18] VITALS: BP 133/61; PULSE 97; TEMP 36.1
== END 2022-01-15 12:25 | disposition home or self-care (01) ==
LOC: OR 07:44
PROVIDERS: PCP Internal Medicine Adolescent Medicine; Visit Provider Surgery
PROC: (CPT 49505; principal; 2022-01-15 09:15)
DX: K40.90 Unilateral inguinal hernia, without obstruction or gangrene, not specified as recurrent (principal); E11.9 Type 2 diabetes mellitus without complications; E78.5 Hyperlipidemia, unspecified; I10 Essential (primary) hypertension; I25.2 Old myocardial infarction
CPT/HCPCS: 49505; 81001; 82962; 93005; 96374; J2405

== ENCOUNTER 2022-01-26 10:12 | Outpatient (CLI) | payer BC, SELFPAY ==
[2022-01-26 10:20] VITALS: BP 151/92; PULSE 91; RESP 19; O2SAT 99
--- NOTE | 2022-01-26 10:40 | PC.NURSE ---
1044-spoke with augusto from office will call in oral toradol prescription for pain to [facility].
[2022-01-26 10:58] VITALS: BP 127/89; PULSE 85; RESP 18; O2SAT 99
== END 2022-01-26 10:58 | disposition home or self-care (01) ==
LOC: INF 10:13
PROVIDERS: PCP Internal Medicine Adolescent Medicine; Visit Provider Surgery
DX: K40.90 Unilateral inguinal hernia, without obstruction or gangrene, not specified as recurrent (principal); Z98.890 Other specified postprocedural states
CPT/HCPCS: 96372

== ENCOUNTER → 2022-01-29 10:33 | Outpatient (POV) | payer BC, SELFPAY ==
[2022-01-29 10:47] VITALS: BP 144/84; PULSE 82; RESP 20; BMI 28.3
--- NOTE | 2022-01-29 13:37 | HMH.PMCON ---
Assessment and Plan (1) Degenerative disc disease, cervical Status: Acute Category: Medical Code(s): M50.30 - Other cervical disc degeneration, unspecified cervical region (2) Low back pain Status: Acute Category: Medical Code(s): M54.50 - Low back pain, unspecified (3) Leg pain, left Status: Acute Category: Medical Code(s): M79.605 - Pain in left leg (4) Left groin pain Status: Acute Category: Medical Code(s): R10.32 - Left lower quadrant pain - Assessment and plan all Dx Assessment and Plan for all problems:: Patient has significant pain in his that radiates to his left hip to his groin and goes to his knee. Unfortunately the patient is 2 weeks postop so at this time we are limited on offering injective therapy. I did discuss with the patient multiple injective therapies that may be beneficial to him in the future if he continues to have this pain. I will order the patient updated lumbar MRI at today's visit however he will not be able to complete this until 6 weeks postop. We will proceed forward with injective therapy once patient is 6 weeks postop and we have updated imaging of his lumbar spine. I will order the patient a compounding cream and take over the patient's gabapentin and tramadol prescriptions. I did discuss with the patient regarding increasing the gabapentin to 300 mg 3 times daily and giving tramadol 50 mg twice daily. I will provide both these medications a 2-week supply. I will also prescribe the patient prednisone 20 mg twice daily for 5 days. Patient will follow up in 2 weeks regarding the new medication regimen. Patient will return to clinic in 2 weeks for reevaluation of symptoms and follow-up. Patient has been advised of risks of oversedation with the prescribed medication. Narcan has been offered to the patient in the event of oversedation. Patient has been advised that a family member should also be educated regarding administration of Narcan. Patient has been instructed to contact the clinic with any concerns before the next appointment. Dr. Fleming has reviewed this note and agrees with this plan of care. This note was dictated using voice recognition software and make contain errors or omissions. HPI - Data of Consult Patient: new to practice Consult date: 01/29/22 Requesting Physician: Jannet Munoz APRN Primary Care Provider: Alberto Trujillo MD Family Provider: Dr. Alberto Farris - Consult Narrative Reason for consult: Left hip pain, left groin pain, low back pain History of present illness: Mr. Lomax is a 61 year old male presents as a new patient today. He is being referred by Dr. Benitez Vines. Patient is 2-week postop from open left inguinal hernia repair. Patient states that at his 2-week postop visit with Dr. Johnson yesterday he stated the swelling and an incision site was better than expected. Per patient Dr. Johnson stated he had a complex hernia. Patient states that his pain today is a 7 out of 10. He states his pain is all in his low back that radiates to his left hip and groin and goes down to his knee. He states that this is a aching, throbbing sensation that does give numbness and tingling into his left leg. He states this is worse with increased activity. Patient states that this all started around August or September of this year. Patient denies any trauma or injury to the site. Patient states he has been given Toradol that provided moderate relief however did not provide long-term results. He has also been given tramadol and Tylenol that provide some relief. Patient has tried ice and [id number] topical ems with minimal relief. Patient does have chronic neck and back pain. He has had a cervical fusion along and a lumbar fusion. His Alexander is [id number]. It has been reviewed and appropriate. CC: Jannet Munoz APRN [facility] History I have reviewed the patient's past medical history: Yes Medical History: Reports:: Coronary Artery Disease, Diabetes Patrice
== END ==
PROVIDERS: PCP Internal Medicine Adolescent Medicine; Visit Provider Nurse Practitioner Family
DX: M50.30 Other cervical disc degeneration, unspecified cervical region (principal); M54.50 Low back pain, unspecified; M79.605 Pain in left leg; R10.32 Left lower quadrant pain
CPT/HCPCS: 99202; G0463

== ENCOUNTER → 2022-02-12 08:39 | Outpatient (POV) | payer BC, SELFPAY ==
[2022-02-12 08:40] VITALS: BP 151/85; PULSE 78; RESP 18; TEMP 36.6; O2SAT 100; BMI 28.8
--- NOTE | 2022-02-12 09:13 | EXP.PAIN.SOA ---
[facility] Pain Management SOAP Note Subjective:: Patient is a pleasant 61-year-old male who presents today for follow-up. We are currently treating the patient for degenerative disc disease of cervical spine, low back pain, left groin pain, left leg pain. Today the patient rates his pain a 9 out of 10. He states the pain is all in he has low back with left hip and left leg pain that stops at his knee. Patient denies any new trauma or injury to the site. Patient had a open left inguinal hernia repair by Dr. Vines roughly 4 weeks ago. Patient states his groin pain has gotten better since the last visit, however he states he is unable to sleep at night due to the unbearable pain. We did prescribe the patient tramadol 50 mg twice daily and gabapentin 300 mg 3 times a day at our last visit. Patient denies any side effects from these medications. He states these medications do help manage his pain. Patient did run out of his tramadol on Wednesday. patient is also tried the compounding cream, he states this does help however it does not give prolonged results. Patient has failed conservative therapies such as oral medications, creams, ice and heat and physical therapy. His Alexander is [id number]. Its been reviewed and appropriate. Review of Systems: General: No recent weight changes, no fever, no sleep disturbances Respiratory: No cough, no shortness of air, no recurring pulmonary infections Cardiovascular/peripheral vascular: No chest pain, no palpitations, no edema, no shortness of breath Gastrointestinal: No new onset incontinence, normal bowel movements reported Genitourinary: No new onset incontinence Musculoskeletal: Low back pain, left hip pain, left leg pain Psychiatric: [Normal mood/affect] Neurological: [Denies weakness in extremities], [denies balance issues] . Objective:: Physical Exam: General: Alert and oriented x3, no acute distress, pleasant and cooperative Lungs: Respirations even and unlabored, symmetrical chest expansion Eyes: PERRL Musculoskeletal: Flexion and extension of lumbar [spine] somewhat guarded secondary to pain, [antalgic gait noted] Neurological: Speech clear, no gross sensory deficit Assessment:: Degenerative disc disease of cervical spine, low back pain, left groin pain, left leg pain Plan:: Patient continues to have significant postoperative pain in his low back, left hip and left leg. Patient had point tenderness along left hip and left inguinal during today's exam. I have discussed with the patient regarding scheduling him for a left inguinal nerve block. Risk and benefits were reviewed with the patient. He would like to proceed forward with this injection. Patient states he has not had any updated imaging of his lumbar spine in years. I will order a lumbar MRI at today's visit. I will also refill the patient's tramadol 50 mg twice daily and give a 1 month supply of this medication. I have counseled the patient regarding taking the medication as prescribed. Patient did run out of his medication earlier than his prescription date should have been. I have told the patient that if this consistently becomes an issue we may not be able to prescribe any further. I will give a refill on his gabapentin 300 mg 3 times a day and give a 1 month supply of this. I will also add a muscle relaxer, tizanidine to his medications. I will give a 14-day supply of this medication. I will order the patient a prescription of lidocaine patches as well. Patient has been instructed to contact the clinic with any concerns before the next appointment. Dr. Fleming has reviewed this note and agrees with this plan of care. This note was dictated using voice recognition software and make contain errors or omissions. PFSH PFSH Social History Smoking Status: Former smoker pack-years: 20 second hand exposure: Yes alcohol intake: never substance use type: denies use current occupational status: other Travel in the last 8 weeks: None household mem
== END | disposition home or self-care (01) ==
PROVIDERS: PCP Internal Medicine Adolescent Medicine; Visit Provider Nurse Practitioner Family
DX: M50.30 Other cervical disc degeneration, unspecified cervical region (principal); R10.32 Left lower quadrant pain; M79.605 Pain in left leg
CPT/HCPCS: 99212; G0463

== ENCOUNTER 2022-03-03 10:09 | Day surgery (SDC) | payer BC, SELFPAY ==
[2022-03-03 10:12] VITALS: BP 133/83; PULSE 91; RESP 20; O2SAT 99; BMI 28.3
[2022-03-03 10:21] VITALS: BP 132/85; PULSE 91; RESP 18; O2SAT 98
[2022-03-03 10:22] VITALS: BP 132/85; PULSE 91; RESP 18; O2SAT 98
--- NOTE | 2022-03-03 10:31 | EXP.PAIN.PRO ---
Procedure Date: 03/03/22 Time: 10:31 Anesthesiologist:: Ascencion Sanchez CRNA Complications:: None Pre-procedure Diagnosis:: Left groin pain Post-procedure Diagnosis:: Same Indications for Procedure:: This patient is a pleasant 61-year-old male that comes our injection clinic today for a left inguinal nerve block. Patient has interesting and complex pain syndrome. He is 6 weeks postop left inguinal hernia repair. This was an open repair with mesh. Patient describes his pain today as constant, dull, sharp, stabbing in the left inguinal area and radiating down the anterior thigh including the knee. Patient denies left testicular pain. Patient denies any changes in bowel or bladder function. Patient states pain increases at night. Patient also describes a very similar pain prior to the inguinal hernia repair. Patient describes the pain preoperatively as very similar. However, since surgery it is a fraction better. I discussed in detail with the patient regarding inguinal nerve block. Also, discussed in detail with the patient regarding low back as well as left SI joint issues. We will proceed with a left inguinal nerve block today. Procedure Details:: Details of the procedure were explained to the patient. The patient taken the procedure room placed in the supine position. The area over the left inguinal area was cleaned using chlorhexidine as a cleansing solution. Using a 25-gauge inch and half needle inguinal nerve block was carried out in a traditional fashion using a solution of 6 cc of 0.25% Marcaine +6 cc of 1% lidocaine and 40 mg of Depo-Medrol. Patient tolerated procedure without difficulty. There are no complications. Plan and Disposition:: Patient was discharged from the clinic without incident.
[2022-03-03 10:33] VITALS: BP 119/78; PULSE 87; RESP 20; O2SAT 96
== END 2022-03-03 10:36 | disposition home health service (06) ==
PROVIDERS: PCP Internal Medicine Adolescent Medicine; Visit Provider Nurse Anesthetist, Certified Registered
DX: R10.32 Left lower quadrant pain (principal)
CPT/HCPCS: 64425; J1040

== ENCOUNTER 2022-03-10 13:23 | Day surgery (SDC) | payer BC, SELFPAY ==
[2022-03-10 13:42] VITALS: BP 115/88; PULSE 81; RESP 18; TEMP 36.9; O2SAT 100; BMI 29.1
[2022-03-10 13:51] VITALS: BP 148/94; PULSE 94; RESP 18
[2022-03-10 13:52] VITALS: BP 136/97; PULSE 90; RESP 18; O2SAT 98
--- NOTE | 2022-03-10 14:02 | P.PCN_ITS ---
Procedure Date: 03/10/22 Time: 14:00 Anesthesiologist:: Ascencion Sanchez CRNA Complications:: None Pre-procedure Diagnosis:: Sacroiliitis, complex pain syndrome, post inguinal hernia repair Post-procedure Diagnosis:: Same Indications for Procedure:: Patient is a pleasant 61-year-old male who presents today for left SI injection. We are currently treating the patient for sacroiliitis, complex pain syndrome, post inguinal hernia repair. Previously the patient did have a left inguinal nerve block that provided significant improvement of his pain symptoms including his groin pain. Today the patient states his pain level is 6 out of 10 and states the pain is in his low back that radiates into his left leg and occasionally down to his foot. Physical exam General: Alert and oriented x3, no acute distress, pleasant and cooperative on room air Lungs: Respirations even and unlabored, symmetrical chest expansion Eyes: PERRL Musculoskeletal: Flexion extension of lumbar spine somewhat guarded secondary to pain, antalgic gait noted Neurological speech clear, no gross sensory deficits Procedure Details:: Informed consent was obtained and the risk and benefits of the procedure were explained to the patient. The patient was taken to the procedure room and noninvasive monitors were placed including noninvasive blood pressure cuff and pulse oximeter. The patient was placed prone on the procedure table. C-arm fluorosocpy was used to view the left SI joint. The skin and subcutaneous tissues were accessed using a 22-gauge spinal needle was inserted under fluoroscopic guidance into the inferior aspect of the left SI joint. approximate ly 5 mL of bupivacaine 0.25% and Depo-Medrol 40 mg was incrementally injected into the sacroiliac joint.~ The patient tolerated the procedure well with no complications. Plan and Disposition:: Patient is experiencing new pain along his lumbar spine that radiates down to his left foot. We will order the patient a MRI of his lumbar spine without con trast. Patient will follow-up in office in 2 weeks. The patient was observed in the Pain Clinic for a period of 30-45 minutes, then discharged home neurologically intact. Patient was counseled to contact office with any questions or concerns before the next follow-up visit. Dr. Fleming was reviewed this note and agrees with this plan of care. This note has been dictated using voice recognition software and may contain errors or omissions.
[2022-03-10 14:22] VITALS: BP 129/72; PULSE 81; RESP 18; O2SAT 97
== END 2022-03-10 14:22 | disposition home or self-care (01) ==
PROVIDERS: PCP Internal Medicine Adolescent Medicine; Visit Provider Nurse Anesthetist, Certified Registered
DX: M46.1 Sacroiliitis, not elsewhere classified (principal); G89.4 Chronic pain syndrome
CPT/HCPCS: 27096; G0260; J1040

== ENCOUNTER → 2022-03-18 07:59 | Outpatient (CLI) | payer BC, SELFPAY ==
--- NOTE | 2022-03-18 08:07 | MR_ITS ---
FINAL REPORT TECHNIQUE: Multiplanar MR without contrast CLINICAL HISTORY: LOWER BACK PAIN lower back pain with left leg pain x 4 months no injury FINDINGS: Sagittal images show normal vertebral height. There is minimal retrolisthesis of L5 on S1. Marrow signal pattern is unremarkable. There are postoperative changes from fusion at L4-5. L1-2: There is a small right lateral canal disc protrusion. There is no nerve root compression. L2-3: There is a moderate annular disc bulge. There is a small central disc protrusion with mild central canal stenosis and moderate right and moderate to severe left neural foraminal narrowing. L3-4: There is a moderate annular disc bulge and facet arthropathy. There is moderate central canal stenosis and bilateral neural foraminal narrowing. L4-5: There are postoperative changes of fusion and laminectomy without central canal stenosis for nerve root compression. L5-S1: There are postoperative changes of laminectomy. There is no central canal stenosis. There is moderate to severe bilateral neural foraminal narrowing. IMPRESSION: 1. Canal stenosis most pronounced at L3-4. 2. Multilevel neural foraminal narrowing most pronounced at L3-4 and L5-S1. Reviewed, Interpreted and Dictated by Judith Ellison MD Transcribed by Pati Higuera Authenticated and . [facility]
== END ==
PROVIDERS: PCP Internal Medicine Adolescent Medicine; Visit Provider Nurse Practitioner Family
DX: M54.50 Low back pain, unspecified (principal); Z87.891 Personal history of nicotine dependence
CPT/HCPCS: 72148; 76376

== ENCOUNTER → 2022-03-25 11:44 | Outpatient (POV) | payer BC, SELFPAY ==
[2022-03-25 12:24] VITALS: BP 133/90; PULSE 85; RESP 18; TEMP 36.7; O2SAT 97; BMI 27.0
--- NOTE | 2022-03-25 12:37 | EXP.PAIN.SOA ---
[facility] Pain Management SOAP Note Subjective:: Patient is a pleasant 61-year-old male who presents today for follow-up. We are currently treating the patient for sacroiliitis, complex pain syndrome, post inguinal hernia repair. Today the patient rates his pain a 10 out of 10. He states that he is having pain in his low back that radiates into his left hip and shoots down his entire left leg to his cordoba. Patient denies any new trauma or injury. He states this is the same pain he has been experiencing in the past. We had previously done a inguinal nerve block on the left side that did provide significant relief of his symptoms however patient feels like it is more in his back that radiates down his entire leg. Patient previously had a open left inguinal hernia repair by Dr. Vines around the end of December. Patient states this pain is excruciating and often affects his ability to sleep at night and do even minimal movement around his house. Patient does use ice and heat occasionally to provide some relief. Patient was previously prescribed compounding cream however he stated it made his pain symptoms worse and he has discontinued use. Patient has been prescribed tramadol 50 mg twice daily and gabapentin 300 mg 3 times daily. Patient denies any side effects from these medications. He states these medications occasionally help however he continues to have significant pain unaffected by these medications. He is requesting something stronger at today's visit. His Alexander is [id number]. It has been reviewed and appropriate. Review of Systems: General: No recent weight changes, no fever, no sleep disturbances Respiratory: No cough, no shortness of air, no recurring pulmonary infections Cardiovascular/peripheral vascular: No chest pain, no palpitations, no edema, no shortness of breath Gastrointestinal: No new onset incontinence, normal bowel movements reported Genitourinary: No new onset incontinence Musculoskeletal: Low back pain, left hip pain, left groin pain, left leg pain Psychiatric: [Normal mood/affect] Neurological: [Denies weakness in extremities], [denies balance issues] Objective:: Physical Exam: General: Alert and oriented x3, no acute distress, pleasant and cooperative Lungs: Respirations even and unlabored, symmetrical chest expansion Eyes: PERRL Musculoskeletal: Flexion and extension of lumbar [spine] somewhat guarded secondary to pain, [antalgic gait noted] Neurological: Speech clear, no gross sensory deficit Assessment:: Degenerative disc disease lumbar spine with lumbar radiculopathy symptoms, lumbar stenosis, postlaminectomy syndrome lumbar spine, complex pain syndrome, post inguinal hernia repair, sacroiliitis Plan:: Patient continues to have significant pain in his low back that radiates down his left leg. I have discussed with the patient that he may benefit from a lumbar epidural steroid injection. Risk and benefits have been discussed with the patient. He would like to proceed forward with this injection. He is not currently on any blood thinners. I will also prescribe Malott 5 mg 3 times daily and provide a 14-day supply of this medication. I will also give prednisone 20 mg twice daily for 5 days. Patient did not think he could tolerate waiting till next week for this injection. We will schedule him for tomorrow in [place] for a LESI L3-4. Patient has been advised of risks of oversedation with the prescribed medication. Narcan has been offered to the patient in the event of oversedation. Patient has been advised that a family member should also be educated regarding administration of Narcan. Patient has been instructed to contact the clinic with any concerns before the next appointment. Dr. Fleming has reviewed this note and agrees with this plan of care. This note was dictated using voice recognition software and make contain errors or omissions. [facility] Medical History (Updated 03/03/22 @ 10:23 by Leila Nelson RN) LEILANI (ant
== END | disposition home or self-care (01) ==
PROVIDERS: PCP Internal Medicine Adolescent Medicine; Visit Provider Nurse Practitioner Family
DX: M51.16 Intervertebral disc disorders with radiculopathy, lumbar region (principal); M96.1 Postlaminectomy syndrome, not elsewhere classified; M46.1 Sacroiliitis, not elsewhere classified; M48.061 Spinal stenosis, lumbar region without neurogenic claudication
CPT/HCPCS: 99212; G0463

== ENCOUNTER → 2022-04-13 11:23 | Outpatient (POV) | payer BC, SELFPAY ==
[2022-04-13 11:47] VITALS: BP 134/78; PULSE 86; RESP 18; TEMP 36.6; O2SAT 99; BMI 27.4
--- NOTE | 2022-04-13 16:20 | EXP.PAIN.SOA ---
[facility] Pain Management SOAP Note Subjective:: Patient is a pleasant 61-year-old male who presents today for follow-up. We are currently treating the patient for sacroiliitis, complex pain syndrome, post inguinal hernia repair. Today the patient rates his pain a 8 out of 10. He states he continues to have pain in his low back that radiates into his left hip and shoots down his entire left leg to his ankle. Patient denies any new trauma or injury. Patient states he has random moments of sharp shooting pain to his ankle and he does better when he is lying flat. Previously he did have a lumbar epidural steroid injection at L3-L4 that provided 20 to 25% relief lasting only a few days. Patient has had injective therapy in the past including an inguinal nerve block on the left side that did provide significant improvement of his symptoms. Patient did have an open left inguinal hernia repair by Dr. Vines at the end of December. Patient states the pain continues to affect his activities of daily living and sleeping at night. He was prescribed compounding cream however he stated it made his symptoms worse and discontinued use. Patient is currently prescribed [place]ne 5 mg 3 times a day however patient states his previous medication of tramadol 50 mg twice a day provided longer relief of his symptoms. He is also managed with gabapentin 300 mg 3 times a day and tizanidine 4 mg 3 times daily. Patient denies any side effects from these medications. He states these medications do help manage his pain symptoms. Patient states he is scheduled to see [facility] on 04/20/2022 for possible spinal fusion. His Alexander is [id number]. Its been reviewed and appropriate. Review of Systems: General: No recent weight changes, no fever, no sleep disturbances Respiratory: No cough, no shortness of air, no recurring pulmonary infections Cardiovascular/peripheral vascular: No chest pain, no palpitations, no edema, no shortness of breath Gastrointestinal: No new onset incontinence, normal bowel movements reported Genitourinary: No new onset incontinence Musculoskeletal: Low back pain, left hip pain, left groin pain Psychiatric: [Normal mood/affect] Neurological: [Denies weakness in extremities], [denies balance issues] Objective:: Physical Exam: General: Alert and oriented x3, no acute distress, pleasant and cooperative Lungs: Respirations even and unlabored, symmetrical chest expansion Eyes: PERRL Musculoskeletal: Flexion and extension of lumbar [spine] somewhat guarded secondary to pain, [antalgic gait noted]. Extreme point tenderness along left SI and positive left Terrie's, Asmita's, Gaenslen's, compression and distraction exam Neurological: Speech clear, no gross sensory deficit Assessment:: Sacroiliitis, complex pain syndrome, post inguinal hernia repair Plan:: Patient continues to have significant pain in his low back that radiates into his left leg. Patient had limited range of motion of his lumbar spine during today's visit. He also had extreme point tenderness along his left SI and positive left Terrie's, Asmita's, Gaenslen's, compression and distraction exam. I have discussed with the patient regarding doing a left SI injection. Risk and benefits were discussed with the patient. He would like to proceed forward with this injection. I will also refill the patient's tramadol 50 mg twice a day and gabapentin 300 mg 3 times a day and provide a 1 month supply of these medications along with his tizanidine 4 mg 3 times daily. I have discussed with the patient that he may be a beneficial candidate for spinal simplicity in the future. We will schedule the patient for a left SI injection at today's visit. Patient has been advised of risks of oversedation with the prescribed medication. Narcan has been offered to the patient in the event of oversedation. Patient has been advised that a family member should also be educated regarding administration of Narcan. Patient has been
== END | disposition home or self-care (01) ==
PROVIDERS: PCP Internal Medicine Adolescent Medicine; Visit Provider Nurse Practitioner Family
DX: M46.1 Sacroiliitis, not elsewhere classified (principal); R52 Pain, unspecified; Z79.899 Other long term (current) drug therapy
CPT/HCPCS: 99212; G0463

== ENCOUNTER 2022-04-21 13:41 | Day surgery (SDC) | payer BC, SELFPAY ==
[2022-04-21 13:50] VITALS: BP 119/86; PULSE 92; RESP 18; O2SAT 96
[2022-04-21 13:51] VITALS: BP 118/79; PULSE 95; RESP 18; TEMP 37.1; O2SAT 95; BMI 27.4
--- NOTE | 2022-04-21 13:54 | EXP.PAIN.PRO ---
Procedure Date: 04/21/22 Time: 13:55 Anesthesiologist:: Ascencion Sanchez CRNA Complications:: None Pre-procedure Diagnosis:: Sacroiliitis, complex pain syndrome, post inguinal hernia repair Post-procedure Diagnosis:: Same Indications for Procedure:: Patient is a pleasant 61-year-old male who presents today for left SI injection. We are currently treating the patient for sacroiliitis, complex pain syndrome, post inguinal hernia repair. Today patient rates his pain a 8 out of 10. Patient denies any new trauma or injury. Patient denies any change to location or type of pain he experiences. Patient is currently managed with tramadol 50 mg twice a day, tizanidine 4 mg 3 times a day, and gabapentin 300 mg 3 times a day. Patient does state he has some constipation issues with the tramadol however he has increased his fiber and takes [id number] medication as needed. General: Alert and oriented x3, no acute distress, pleasant and cooperative Lungs: Respiration even unlabored, symmetrical chest expansion Eyes: PERRL Musculoskeletal: Flexion and extension of lumbar spine somewhat guarded secondary to pain, antalgic gait noted Neurological: Speech clear, no gross sensory deficit Procedure Details:: Informed consent was obtained and the risks and benefits of the procedure were explained to the patient.~ The patient was taken to the procedure room and noninvasive monitors were placed including a noninvasive blood pressure cuff and pulse oximeter.~ The patient was placed prone on the procedure table. Both hips were cleansed using Betadine as a cleansing solution. C-arm fluoroscopy was used to view the left sacroiliac joint.~ The skin and subcutaneous tissues were anesthetized using lidocaine 1.5% and a 25-gauge needle.~ After this, a 22-gauge spinal needle was inserted under fluoroscopic guidance into the inferior aspect of the right sacroiliac joint.~ Omnipaque dye was injected and good spread was seen throughout the joint.~ After this, approximately 5 mL of bupivacaine, 0.25% and Depo-Medrol, 40 mg was incrementally injected into the left sacroiliac joint. The patient tolerated the procedure well with no complications. The patient was observed in the Pain Clinic and then was discharged home neurologically intact. Plan and Disposition:: We will see the patient back in clinic in 2 weeks. Patient will return to clinic for reevaluation of symptoms and follow-up. Patient has been counseled to contact the office with any questions and concerns prior to the next appointment date. Dr. Fleming is read this note and agrees with this plan of care. This note was dictated using voice recognition software and may contain errors or omissions.
[2022-04-21 14:03] VITALS: BP 124/79; PULSE 94; RESP 18; O2SAT 96
== END 2022-04-21 14:03 | disposition home or self-care (01) ==
PROVIDERS: PCP Internal Medicine Adolescent Medicine; Visit Provider Nurse Anesthetist, Certified Registered
DX: G89.29 Other chronic pain (principal); M46.1 Sacroiliitis, not elsewhere classified
CPT/HCPCS: 27096; G0260; J1040

== ENCOUNTER → 2022-05-05 10:40 | Outpatient (POV) | payer BC, SELFPAY ==
[2022-05-05 10:50] VITALS: BP 119/76; PULSE 65; RESP 18; O2SAT 95; BMI 28.3
--- NOTE | 2022-05-05 11:06 | EXP.PAIN.SOA ---
[facility] Pain Management SOAP Note Subjective:: Patient is a pleasant 61-year-old male who presents today for follow-up of left SI injections on 04/21/2022 and medication refill. We are currently treating the patient for sacroiliitis, complex pain syndrome, post inguinal hernia repair. Patient states following this last injection he did have significant improvement of his symptoms and states he has had decreased shooting pains into his left leg. Patient states he went from approximately 10-12 a day down to 1-2. Today the patient rates his pain a 7 out of 10. Patient states his pain is in his low back and radiates down his left leg as well as some discomfort in his left elbow similar to when he had right tennis elbow in the past. Patient is currently scheduled to see a surgeon at [facility] next week on the . Dr. Cline has talked to the patient about possibly having surgery to repair loose hardware at his fusion site at L4-L5. He is scheduled to have a CT scan and proceed from there. Patient previously had a open left inguinal hernia repair by Dr. Vines at the end of December and his pain progressively worsened after. Patient has had multiple injections in the [facility] including a inguinal nerve block, epidural steroid injections and SI injections. Patient is currently prescribed tramadol 50 mg twice daily, gabapentin 300 mg 3 times daily and tizanidine 4 mg 3 times daily. Patient denies any side effects from these medications. He states these medications do help take the edge off of his pain symptoms. He is requesting refills of the tizanidine and gabapentin. His Alexander is [id number]. It has been reviewed and appropriate. Review of Systems: General: No recent weight changes, no fever, no sleep disturbances Respiratory: No cough, no shortness of air, no recurring pulmonary infections Cardiovascular/peripheral vascular: No chest pain, no palpitations, no edema, no shortness of breath Gastrointestinal: No new onset incontinence, normal bowel movements reported Genitourinary: No new onset incontinence Musculoskeletal: Low back pain, left leg pain, left elbow pain Psychiatric: [Normal mood/affect] Neurological: [Denies weakness in extremities], [denies balance issues] Objective:: Physical Exam: General: Alert and oriented x3, no acute distress, pleasant and cooperative Lungs: Respirations even and unlabored, symmetrical chest expansion Eyes: PERRL Musculoskeletal: Flexion and extension of lumbar [spine] somewhat guarded secondary to pain, [antalgic gait noted] Neurological: Speech clear, no gross sensory deficit Assessment:: Sacroiliitis, complex pain syndrome, post inguinal hernia repair Plan:: Patient continues to experience significant pain in his low back along the left side that radiates into his left leg. At this time the patient does not need any additional injective therapy due to the possibility of having surgery coming up. I will refill the patient's gabapentin 300 mg 3 times a day and tizanidine 4 mg 3 times daily and provide a 1 month supply of these medications. We will follow-up with the patient in 1 month. Patient will return to clinic in 1 month for reevaluation of symptoms, medication refill and follow-up. Patient has been instructed to contact the clinic with any concerns before the next appointment. Dr. Fleming has reviewed this note and agrees with this plan of care. This note was dictated using voice recognition software and make contain errors or omissions. [facility] Medical History HLD (hyperlipidemia) HTN (hypertension) Left groin pain Surgical History History of inguinal hernia repair Family History Other No significant family history Social History Smoking Status: Former smoke
== END | disposition home or self-care (01) ==
PROVIDERS: PCP Internal Medicine Adolescent Medicine; Visit Provider Nurse Practitioner Family
DX: M46.1 Sacroiliitis, not elsewhere classified (principal)
CPT/HCPCS: 99212; G0463

== ENCOUNTER → 2022-05-06 07:40 | Outpatient (CLI) | payer BC, SELFPAY ==
--- NOTE | 2022-05-06 07:44 | CT_ITS ---
FINAL REPORT TECHNIQUE: Axial images were performed through the lumbar spine by computed tomography. Sagittal reconstruction images were also performed. This study was performed with techniques to keep radiation doses as low as reasonably achievable, (ALARA). Individualized dose reduction techniques using automated exposure control or adjustment of mA and/or kV according to the patient''s size were employed. CLINICAL HISTORY: LUMBAR PAIN FINDINGS: Sagittal reconstruction images demonstrate no subluxation. There is 17 degree lumbar scoliosis convex to the right. There is posterior fusion hardware bridging L4-5. L1-2: No significant canal stenosis or neural foraminal narrowing. L2-3: Large midline posterior osteophyte with moderate spinal canal compromise. L3-4: Endplate hypertrophy is present with moderate bilateral neural foraminal narrowing. L4-5: No significant canal stenosis or neural foraminal narrowing. L5-S1: Moderate endplate hypertrophy is present with moderate to high-grade bilateral neural foraminal narrowing. Note is made of multiple nonobstructing right renal stones measuring up to 4 mm in greatest dimension. IMPRESSION: Multilevel degenerative disc disease with moderate to high-grade bilateral neural foraminal narrowing at L5-S1. Posterior fusion hardware bridging L4-5. Nonobstructing right renal stones. Reviewed, Interpreted and Dictated by Wei Babcock MD Transcribed by Debbi Freeman Authenticated and [facility]
== END ==
PROVIDERS: PCP Internal Medicine Adolescent Medicine; Visit Provider Orthopaedic Surgery
DX: M54.50 Low back pain, unspecified (principal)
CPT/HCPCS: 72131

== ENCOUNTER → 2022-06-04 08:44 | Outpatient (POV) | payer BC, SELFPAY ==
--- NOTE | 2022-06-04 09:23 | EXP.PAIN.SOA ---
[facility] Pain Management SOAP Note Subjective:: Patient is a pleasant 62-year-old male who presents today for follow-up. We are currently treating the patient for sacroiliitis, complex pain syndrome, post inguinal hernia repair, degenerative disc disease of lumbar spine with lumbar radiculopathy symptoms. Patient states he did have an injection approximately 1 week ago from our provider in [place] and believes it was a left transforaminal epidural at L3-4 and states he had significant relief with this injection. Patient states he has had a 100% relief of the symptoms into his legs following this injection and feels like it still continuing to provide improvement. Today the patient does rate his pain a 6 out of 10. He states the pain is more in his upper back and his left elbow. Patient denies any new injury or trauma. Patient describes this as a aching, throbbing sensation that is worse with increased activity. Patient does have a history of cervical fusion as well as lumbar fusion in the past. Patient has seen Dr. Kirkpatrick and Dr. Cuevas for these procedures. Patient is scheduled to see a neurosurgeon on July 09. Patient has gotten multiple injections in the past including an inguinal nerve block, epidural steroid injections and SI injections. Patient is currently prescribed tramadol 50 mg twice a day, gabapentin 300 mg 3 times a day and tizanidine 4 mg 3 times a day. Patient denies any side effects from these medications. He states these medications do provide significant improvement of his pain symptoms. He is requesting refills at today's visit. His Alexander is [id number]. Its been reviewed and appropriate. Review of Systems: General: No recent weight changes, no fever, no sleep disturbances Respiratory: No cough, no shortness of air, no recurring pulmonary infections Cardiovascular/peripheral vascular: No chest pain, no palpitations, no edema, no shortness of breath Gastrointestinal: No new onset incontinence, normal bowel movements reported Genitourinary: No new onset incontinence Musculoskeletal: Neck pain Psychiatric: [Normal mood/affect] Neurological: [Denies weakness in extremities], [denies balance issues] Objective:: Physical Exam: General: Alert and oriented x3, no acute distress, pleasant and cooperative Lungs: Respirations even and unlabored, symmetrical chest expansion Eyes: PERRL Musculoskeletal: Flexion and extension of cervical [spine] somewhat guarded secondary to pain, [antalgic gait noted] Neurological: Speech clear, no gross sensory deficit Assessment:: Degenerative disc disease of cervical and lumbar spine with cervical and lumbar radiculopathy symptoms, sacroiliitis, complex pain syndrome, post inguinal hernia repair. Plan:: Patient is experiencing significant pain in his upper back/neck. Patient had limited range of motion of his cervical spine during today's visit. I have discussed with the patient that he may benefit from diagnostic cervical epidural injections. Risk and benefits were discussed with the patient. He would like to proceed forward with this plan of care. I will refill the patient's gabapentin 300 mg 3 times a day, tramadol 50 mg twice a day and tizanidine 4 mg 3 times daily and provide a 1 month supply of this medication. We will schedule the patient for a VINAY C6-C7. Patient has been advised of risks of oversedation with the prescribed medication. Narcan has been offered to the patient in the event of oversedation. Patient has been advised that a family member should also be educated regarding administration of Narcan. Patient has been instructed to contact the clinic with any concerns before the next appointment. Dr. Fleming has reviewed this note and agrees with this plan of care. This note was dictated using voice recognition software and make contain errors or omissions. [facility] Disclaimer: The information contained in this section may have been updated after the patient was seen, as this info
[2022-06-04 09:24] VITALS: BP 130/82; PULSE 108; RESP 18; O2SAT 95; BMI 26.6
== END | disposition home or self-care (01) ==
PROVIDERS: PCP Internal Medicine Adolescent Medicine; Visit Provider Nurse Practitioner Family
DX: M50.123 Cervical disc disorder at C6-C7 level with radiculopathy (principal); M51.16 Intervertebral disc disorders with radiculopathy, lumbar region; M46.1 Sacroiliitis, not elsewhere classified
CPT/HCPCS: 99212; G0463

== ENCOUNTER 2022-06-09 09:45 | Day surgery (SDC) | payer BC, SELFPAY ==
[2022-06-09 09:55] VITALS: BP 129/71; PULSE 93; RESP 18; TEMP 36.3; O2SAT 97; BMI 28.3
[2022-06-09 10:15] VITALS: BP 119/75; PULSE 83; RESP 18; O2SAT 97
[2022-06-09 10:16] VITALS: BP 119/75; PULSE 83; RESP 18; O2SAT 97
[2022-06-09 10:23] VITALS: BP 133/79; PULSE 88; RESP 18; O2SAT 97
--- NOTE | 2022-06-09 10:39 | P.PCN_ITS ---
Procedure Date: 06/09/22 Time: 10:40 Anesthesiologist:: Ascencion Sanchez CRNA Complications:: None Pre-procedure Diagnosis:: Degenerative disc disease cervical spine multilevels. Cervical radiculopathy. Cervical post fusion syndrome. Post-procedure Diagnosis:: Degenerative disc disease cervical spine multilevels. Cervical radiculopathy. Cervical post fusion syndrome. Indications for Procedure:: Patient is a pleasant 62-year-old male that comes our clinic today for initial cervical epidural steroid injection. Patient had anterior cervical discectomy and fusion in the past. He continues having what he describes as constant, dull, aching left arm radicular symptoms. Some posterior cervical neck pain at times. He rates his pain 6/10. Procedure Details:: Procedure:Cervical epidural steroid injection Informed consent was obtained and the risks and benefits of the procedure were explained to the patient. The patient was taken to the procedure room and noninvasive monitors placed, including noninvasive blood pressure cuff and pulse oximeter. The neck was prepped using Chloraprep as a cleansing solution. The C6- C7 interspace was viewed using fluroscopy. The skin and subcutaneous tissues were anesthetized using lidocaine 1.5% and a 25-gauge needle. After this an 18- gauge Touhy epidural needle was placed into the C6-C7 interspace under fluroscopy guidance and advanced using loss of resistance to air until the epidural space was encountered. After confirmation of needle placement in the epidural space using contrast dye, a solution containing normal saline, 2 mL and Depo-Medrol 80 mg was incrementally injected into the cervical epidural space.~ The patient tolerated the procedure well with no complications. The patient was observed in the Pain Clinic and then discharged home neurologically intact. Plan and Disposition:: Patient was discharged without incident.
== END 2022-06-09 10:23 | disposition home or self-care (01) ==
PROVIDERS: PCP Internal Medicine Adolescent Medicine; Visit Provider Nurse Anesthetist, Certified Registered
DX: M50.123 Cervical disc disorder at C6-C7 level with radiculopathy (principal)
CPT/HCPCS: 62321; J1040; Q9966

== ENCOUNTER → 2022-06-24 10:10 | Outpatient (POV) | payer BC, SELFPAY ==
[2022-06-24 10:26] VITALS: BP 141/81; PULSE 94; RESP 18; O2SAT 97; BMI 28.3
--- NOTE | 2022-06-24 10:46 | EXP.PAIN.SOA ---
[facility] Pain Management SOAP Note Subjective:: Patient is a pleasant 62-year-old male who presents today for follow-up of cervical epidural at C6-C7 on 06/09/2022. We are currently treating the patient for degenerative disc disease of lumbar spine with lumbar radiculopathy symptoms, sacroiliitis, complex pain syndrome, post inguinal hernia repair, neck pain, left elbow pain. Today the patient states that he had approximately 30% relief following this injection lasting 5 to 7 days. Patient states his pain is 6 out of 10 and denies any new trauma or injury. Patient denies any change location or type of pain he experiences. Patient states he did see Dr. Jung years ago and did do a previous neck surgery and at that point did tell him he had multiple areas that could possibly need additional surgical intervention in the future. Patient states previously he had right elbow pain that was related to his cervical spine that was relieved following his surgery. Patient is currently managed with gabapentin 300 mg 3 times a day, tramadol 50 mg twice a day and tizanidine 4 mg 3 times daily. Patient states he has stopped taking the gabapentin due to worsening symptoms of dizziness. Patient states the other 2 medications have done well with no complications. Patient states he does not need any refills at this time on those. His Alexander is [phone]. Its been reviewed and appropriate. Review of Systems: General: No recent weight changes, no fever, no sleep disturbances Respiratory: No cough, no shortness of air, no recurring pulmonary infections Cardiovascular/peripheral vascular: No chest pain, no palpitations, no edema, no shortness of breath Gastrointestinal: No new onset incontinence, normal bowel movements reported Genitourinary: No new onset incontinence Musculoskeletal: Neck pain, left elbow pain Psychiatric: [Normal mood/affect] Neurological: [Denies weakness in extremities], [denies balance issues] Objective:: Physical Exam: General: Alert and oriented x3, no acute distress, pleasant and cooperative Lungs: Respirations even and unlabored, symmetrical chest expansion Eyes: PERRL Musculoskeletal: Flexion and extension of cervical [spine] somewhat guarded secondary to pain, [antalgic gait noted] Neurological: Speech clear, no gross sensory deficit Assessment:: Degenerative disc disease of lumbar spine with lumbar radiculopathy symptoms, sacroiliitis, complex pain syndrome, post inguinal hernia repair, neck pain with cervical radiculopathy symptoms, left elbow pain, postlaminectomy syndrome cervical spine Plan:: Patient continues to experience significant pain in his neck with radiating symptoms into his left elbow. Patient did have limited range of motion of his cervical spine during today's visit. I have discussed with the patient he may benefit from updated imaging. I will order the patient a cervical MRI without contrast and a left elbow x-ray during today's exam. Patient will return to clinic following this imaging for reevaluation of symptoms and follow-up. Patient has been instructed to contact the clinic with any concerns before the next appointment. Dr. Fleming has reviewed this note and agrees with this plan of care. This note was dictated using voice recognition software and make contain errors or omissions. [facility] Disclaimer: The information contained in this section may have been updated after the patient was seen, as this information can be updated by other users. Medical History HLD (hyperlipidemia) HTN (hypertension) Left groin pain Surgical History History of inguinal hernia repair Family History Other No significant family history Social History Smoking Status: Former smoker pack-years: 20 second biswas
== END ==
PROVIDERS: PCP Internal Medicine Adolescent Medicine; Visit Provider Nurse Practitioner Family
DX: M51.16 Intervertebral disc disorders with radiculopathy, lumbar region (principal); M46.1 Sacroiliitis, not elsewhere classified; M54.12 Radiculopathy, cervical region; M96.1 Postlaminectomy syndrome, not elsewhere classified; M25.522 Pain in left elbow
CPT/HCPCS: 99212; G0463

== ENCOUNTER 2022-08-04 12:14 | Emergency (ER) | payer BC, SELFPAY ==
--- NOTE | 2022-08-04 12:25 | HMH.EDGENADL ---
Discharge Plan Disposition Patient Disposition: Home, Self-Care Condition: Good Prescriptions Prescriptions: New hydrocodone-acetaminophen 7.5-325 mg tablet 1 tab PO Q6H PRN (Reason: pain) Qty: 10 0RF No Action lisinopril-hydrochlorothiazide 20-25 mg tablet 1 tab PO DAILY metformin 1,000 mg tablet 1,000 mg PO BID Jardiance 25 mg tablet 25 mg PO DAILY ketorolac 10 mg tablet 10 mg PO TID PRN (Reason: pain) 5 Days Qty: 15 0RF lidocaine 5 % adhesive patch,medicated 1 patch topical DAILY Rx Instructions: leave on most painful area for up to 12 hrs tizanidine [Zanaflex] 4 mg tablet 4 mg PO TID Qty: 90 0RF tramadol 50 MG tablet 50 mg PO BID Qty: 60 0RF aspirin 81 MG tablet,delayed release (DR/EC) 81 mg PO DAILY atorvastatin 40 MG tablet 40 mg PO HS hydrocodone-acetaminophen 5-325 mg tablet 1 tab PO TID gabapentin 300 MG capsule 300 mg PO TID Qty: 90 0RF Referrals Follow up/Referrals: Alberto Trujillo MD [Primary Care Provider] - See instructions Activity Restrictions/Add. Instructions Additional Instructions/Restrictions: Rest and apply ice as needed for discomfort. Avoid exertion. Follow-up with your spine surgeon. Clinical Impressions Clinical Impression: Low back pain Discharge ED Provider: Miguel Angel Elmore General Adult HPI General Chief complaint: PAIN Stated complaint: Lower back pain Time Seen by Provider: 08/04/22 12:19 History of Present Illness HPI narrative: Patient presents complaining of severe low back pain that began approximate 3 days ago. He has a known history of degenerative disc disease and is scheduled for back surgery in August of this year. He denies recent trauma he denies incontinence or new neurological symptoms to the lower extremities to include weakness or numbness he states pain is worse with movement. Related Data Home Medications Medication Instructions Recorded Confirmed aspirin 81 mg tablet,delayed 81 mg PO DAILY HE[facility] HEALTH 11/14/19 06/24/22 release atorvastatin 40 mg tablet 40 mg PO HS Cholesterol 11/15/19 06/24/22 empagliflozin 25 mg tablet 25 mg PO DAILY Diabetes 12/17/21 06/24/22 (Jardiance) metformin 1,000 mg tablet 1,000 mg PO BID Diabetes 12/17/21 06/24/22 lisinopril 20 1 tab PO DAILY blood pressure 02/18/22 06/24/22 mg-hydrochlorothiazide 25 mg tablet lidocaine 5 % topical patch 1 patch topical DAILY Pain 03/03/22 06/24/22 hydrocodone 5 mg-acetaminophen 325 1 tab PO TID Pain 04/13/22 06/24/22 mg tablet Previous Rx's Medication Instructions Recorded ketorolac 10 mg tablet 10 mg PO TID PRN pain 5 days #15 01/26/22 tabs gabapentin 300 mg capsule 300 mg PO TID Pain #90 caps 06/04/22 tizanidine 4 mg tablet (Zanaflex) 4 mg PO TID muscle spasm #90 tabs 07/30/22 tramadol 50 mg tablet 50 mg PO BID Pain #60 tabs 07/30/22 hydrocodone 7.5 mg-acetaminophen 1 tab PO Q6H PRN pain #10 tabs 08/04/22 325 mg tablet Allergies Allergy/AdvReac Type Severity Reaction Status Date / Time Penicillins Allergy Verified 08/04/22 12:57 codeine AdvReac Intermediate Hives Verified 08/04/22 12:57 [From Tylenol-Codeine #3] [facility] Disclaimer: The information contained in this section may have been updated after the patient was seen, as this information can be updated by other users. Medical History (Updated 08/04/22 @ 14:34 by Miguel Angel Elmore MD) HLD (hyperlipidemia) HTN (hypertension) Left groin pain Surgical History History of inguinal hernia repair Family History Other No significant family history Social History Smoking Status: Former smoker pack-years: 20 second hand exposure: Yes alcohol intake: never substance use type: denies use current occupational status: unemployed Travel
[2022-08-04 12:37] VITALS: BP 123/60; PULSE 87; RESP 16; O2SAT 95
[2022-08-04 12:49] VITALS: BP 115/67; PULSE 95; RESP 16; TEMP 36.8; O2SAT 97; BMI 28.3
--- NOTE | 2022-08-04 12:57 | PC.NURSE ---
GAVE PT A PILLOW WITH CASE TO HELP EASE HIS KNECK
[2022-08-04 13:00] VITALS: BP 113/82; PULSE 91; RESP 16; O2SAT 95
[2022-08-04 13:31] VITALS: BP 113/71; PULSE 81; RESP 16; O2SAT 94
[2022-08-04 14:00] VITALS: BP 113/48; PULSE 77; O2SAT 94
--- NOTE | 2022-08-04 14:14 | PC.NURSE ---
CHECKED ON PT HE IS RESTING COMFORTABLE POSSIBLE CALL LIGHT AT BEDSIDE
[2022-08-04 14:46] VITALS: BP 108/78; PULSE 81; RESP 16; TEMP 37; O2SAT 96
== END 2022-08-04 14:49 | disposition home or self-care (01) ==
PROVIDERS: Emergency Provider Emergency Medicine; PCP Internal Medicine Adolescent Medicine
DX: M54.50 Low back pain, unspecified (principal); M51.36 Other intervertebral disc degeneration, lumbar region; E78.5 Hyperlipidemia, unspecified; I10 Essential (primary) hypertension; Z87.891 Personal history of nicotine dependence
CPT/HCPCS: 96374; 96375; 96376; 99283; 99284

== ENCOUNTER 2022-08-10 15:00 | Outpatient (RCR) | payer BC, SELFPAY ==
--- NOTE | 2022-07-15 09:03 | HMH.PTOPEV ---
PT Outpatient Evaluation Rehab PT Outpatient Evaluation Start: 07/15/22 08:36 Freq: Status: Active Protocol: Document 07/15/22 08:36 AR (Rec: 07/15/22 09:02 AR [id number]) E-signed By Jaden Mckenna, PT Outpatient Therapy Subjective History Subjective History Patient is a 62 year old male presenting to outpatient PT with reports of chronic cervical spine pain of insidious onset starting approx 4 months ago. Patient has previously underwent C2/3 cervical fusion approx 5 years ago. Symptoms specific to CS to the L elbow. Patient reports that he is scheduled for lumbar spine surgery 09/11. No other comorbidities to report. Chief Complaint Pain,Stiff,Clicks,Paresthesia, Weakness Symptom Type Throb,Sharp,Shooting Symptoms Relieved By Rest/Positioning,Prescription Meds Symptoms Aggravated By Physical Activity,Lifting Prior Functional Limitations None Current Functional Limitations Reaching,Lifting,Housework, Driving,Sleeping Symptom Description Constant but Variable Level of pain today (0-10) 4 Pain scale - at its best (0-10) 3 Pain scale - at its worst (0-10) 10 Cervical Eval Palpation Cervical Muscles R CT Junction,L CT Junction,R Upper Trapezius,L Upper Trapezius Posture Head/C-Spine Posture Sitting Position Excess Extension Head/C-Spine Posture Standing Position Excess Extension Flexibility Deficits Upper Trapezius Muscle Length (R) Moderate Tightness,(L) Moderate Tightness Levaetor Scapulae Muscle Length (R) Moderate Tightness,(L) Moderate Tightness Pectoralis Minor Muscle Length (R) Moderate Tightness,(L) Moderate Tightness Passive Joint Mobility Cervical PIVM WNL: R OA L OA R AA L AA R C2/3 L C2/3 R C3/4 L C3/4 R C4/5 L C4/5 R C5/6 L C5/6
== END 2022-08-10 15:05 | disposition home or self-care (01) ==
LOC: PT 15:00
PROVIDERS: PCP Internal Medicine Adolescent Medicine; Visit Provider Nurse Practitioner Family
DX: M54.2 Cervicalgia (principal)
CPT/HCPCS: 97010; 97012; 97014; 97110; 97163; G0283

== ENCOUNTER 2022-11-26 09:48 | Outpatient (RCR) | payer BC, SELFPAY ==
--- NOTE | 2022-11-26 10:53 | HMH.SLAPHASI ---
Speech & Language Evaluation Speech/Language Aphasia Evaluation Start: 11/26/22 10:32 Freq: once Status: Complete Protocol: Document 11/26/22 10:33 MORRO (Rec: 11/26/22 10:53 [id number] Aphasia Assessment/Goals/Plan Assessment Date of Evaluation: 11/26/22 Evaluation Type Initial Certification Assessment/Problems Pt was assessed at [facility] for cognitive- linguistic deficits following back surgery per MD order. Does Patient Qualify for Service No Qualify/Failure Comment Based on assessment results, patient interview, and clinical observation, cognition and executive function are deemed to be WFL. Skilled speech therapy services are not warranted at this time. Plan Pt/Guardian verbally ack understanding Yes of dx/prognosis/goals G -code Required No Education Instructions provided Discussed assessment results with pt and who expressed understanding. Pt stated he has no concerns for memory or executive function skills and would like to focus on PT/OT following surgery. Pt/Caregiver Able to Recall Information Able to recall/restate Reinforcement needed No Speech & Language HPI History Present Illness Description of Patient Problem Mr. Lomax is a pleasant 62 year old male with multiple comorbidities who was seen in [facility] to assess cognitive-linguistic skills. He was recently discharged from [facility] following receiving postoperative care for a L2-L3 and L3-4 lateral body fusion with exploration of prior L4-5 fusion. He was reported to have issues waxing and waning mentation. During his stay at , he was receiving skilled speech therapy services for temporal problem solving, short term memory, and attention. Pt/Caregiver Concerns Patient and report that they are no longer concerns
== END 2022-11-26 09:50 | disposition home or self-care (01) ==
LOC: ST 09:48
PROVIDERS: PCP Internal Medicine Adolescent Medicine; Visit Provider Physical Medicine & Rehabilitation
DX: R41.841 Cognitive communication deficit (principal); M48.061 Spinal stenosis, lumbar region without neurogenic claudication
CPT/HCPCS: 92523

== ENCOUNTER 2022-11-27 09:48 | Outpatient (RCR) | payer BC, SELFPAY | END 2022-11-27 09:50 | disposition home or self-care (01) | LOC: OT 09:48 | PROVIDERS: PCP Internal Medicine Adolescent Medicine; Visit Provider Physical Medicine & Rehabilitation | DX: M48.061 Spinal stenosis, lumbar region without neurogenic claudication (principal) ==

== ENCOUNTER 2023-03-11 11:00 | Outpatient (RCR) | payer BC, SELFPAY | END 2023-03-11 11:05 | disposition home or self-care (01) | LOC: PT 11:00 | PROVIDERS: PCP Internal Medicine Adolescent Medicine; Visit Provider Physical Medicine & Rehabilitation | DX: M48.061 Spinal stenosis, lumbar region without neurogenic claudication (principal) | CPT/HCPCS: 97010; 97014; 97035; 97110; 97112; 97140; 97163; 97164; 97530; G0283 ==

== ENCOUNTER 2023-10-26 11:11 | Outpatient (POV) | payer BC, SELFPAY | END 2023-10-26 23:59 | disposition home or self-care (01) | LOC: SC 11:11 | PROVIDERS: PCP Internal Medicine Adolescent Medicine; Visit Provider Dermatology | DX: Z00.00 Encounter for general adult medical examination without abnormal findings (principal) ==

== ENCOUNTER 2024-05-30 09:34 | Day surgery (SDC) | payer MEDICARE, BC, SELFPAY ==
--- NOTE | 2024-05-26 15:23 | SUR.PREOP ---
1523: Left message with patient to call back.
[2024-05-30] MEDS: LACTATED RINGERS 1000ML 1,000 ML 25 ML IV (09:48)
[2024-05-30 09:49] VITALS: BMI 28.3
[2024-05-30 09:56] VITALS: BP 119/78; PULSE 106; RESP 18; TEMP 36.4; O2SAT 94
--- NOTE | 2024-05-30 09:56 | EXP.ANES.CKL ---
[facility] Disclaimer: The information contained in this section may have been updated after the patient was seen, as this information can be updated by other users. 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) caffeine: Yes [facility] Anesthesia Checklist Patient Identification Patient Identification: Arm Band and Verbal (Name & ) Structural Data Admitted From: Home Planned Operative Procedure/s: Colonoscopy Consent for Planned Operative Procedure(s) Verified: Yes Verified Documents: Surgical Consent and History and Physical NPO Status Verified Time NPO: 00:00 Additional verifications Anesthesia Reactions: No Hx Blood Transfusions: No Blood Transfusion Reaction: No Airway Assessment Mallampati Score:: Class II C-Spine Mobility Assessed: Yes TMJ Mobility Assessed: Yes Dentition: Good Dentition Neurological Assessment Level of Consciousness: Awake Hx Seizures: No Numbness or tingling in extremities: No Anesthesia Plan Anesthesia Risk discussed: Yes Anesthesia Plan: Verified ASA Class: III Anesthesia Type: MAC
[2024-05-30 10:04] LABS: POC Glucose,Bedside 114 (70-110)
[2024-05-30 10:19] VITALS: O2SAT 94
[2024-05-30 10:55] VITALS: BP 104/61; PULSE 91; RESP 17; TEMP 36.2; O2SAT 94
--- NOTE | 2024-05-30 10:58 | P.PCN_ITS ---
Procedure: Date: 05/30/24 Patient Date of :: 1960 Procedure Performed:: Colonoscopy with polypectomy Indications:: History of colon polyps Performing Provider:: Benitez Murrell MD Referring Provider:: . Sedation:: Monitored anesthesia care Procedure:: After informed consent was obtained the patient was taken to the endoscopy suite. Sedation ensued after the patient was transferred to the left lateral d ecubitus position. Pulse, blood pressure, and oxygen saturation were monitored throughout the procedure. Digital rectal exam revealed no significant abnormality. The colonoscope was placed in position. The entire colon was evaluated. The colonoscope was carefully removed and the patient was transferred to recovery in stable condition. Please see findings and specimens below for detail. Findings:: Bowel preparation fairly poor Fairly severe castaneda diverticulosis Circumferential hemorrhoidal cushions/tags Fairly severe spasticity/lack of relaxation Polyp (see specimens) Specimens:: Lobulated sessile polyp at 65 cm (cold snare) Recommendations:: Timing of repeat colonoscopy is pending pathology will likely be around 1 year with extended/alternate bowel preparation Complications:: No immediate with the exception of limited bowel preparation Estimated blood obtained (mL): 1 Colonoscopy Component Colonoscopy Component Was a colonoscopy performed during today's procedure?: Yes Recommended follow up colonoscopy of at least 10 years?: No If no, follow up colonoscopy recommended in ___ years?: (See above) Reason for not recommending >/= 10 yr follow-up interval?: (See above)
[2024-05-30 11:05] VITALS: BP 97/74; PULSE 91; RESP 17; O2SAT 95
[2024-05-30 11:15] VITALS: BP 102/58; PULSE 86; RESP 17; O2SAT 96
[2024-05-30 11:19] VITALS: BP 115/74; PULSE 87; RESP 17; O2SAT 95
== END 2024-05-30 11:27 | disposition home or self-care (01) ==
PROVIDERS: PCP Internal Medicine Adolescent Medicine; Visit Provider Surgery
PROC: 0DJD8ZZ Inspection of Lower Intestinal Tract, Via Natural or Artificial Opening Endoscopic (ICD-10-PCS; CPT 45385; principal; 2024-05-30 11:30)
DX: K57.30 Diverticulosis of large intestine without perforation or abscess without bleeding (principal); K64.9 Unspecified hemorrhoids; D12.4 Benign neoplasm of descending colon; Z12.11 Encounter for screening for malignant neoplasm of colon; Z86.0100 Personal history of colon polyps, unspecified; E11.8 Type 2 diabetes mellitus with unspecified complications; Z79.84 Long term (current) use of oral hypoglycemic drugs
CPT/HCPCS: 45385; 82962; 88305; J7120

== ENCOUNTER 2025-06-16 12:06 | Outpatient (CLI) | payer MEDICARE, SELFPAY ==
--- OUTSIDE RECORDS SUMMARY | 2025-06-16 12:10 | XMS_ITS | Clinical Summary ---
Author Organization [employer] ([place], [place], [place], [place], [place]) Address [address] [place] [address] Care Team Providers Care Pill Packer Name Role Phone Alberto Trujillo MD Primary Care Provider [phone] Allergies Active Allergy Reactions Criticality Noted Date Comments Codeine Hives High 11/05/2022 Penicillin Other (See Comments) 11/05/2022 States mother allergic Medications atorvastatin (LIPITOR) 40 MG tablet Take 1 tablet (40 mg total) by mouth nightly. 09/01/2022 Active diazePAM (VALIUM) 5 MG tablet Take 1 tablet (5 mg total) by mouth 3 (three) times daily as needed for Anxiety. 09/14/2022 Active lisinopril-hydr oCHLOROthiazide (PRINZIDE,ZESTO RETIC) 20-25 mg per tablet Take 0.5 tablets by mouth in the morning. 09/21/2022 Active metFORMIN (GLUCOPHAGE) 1000 MG tablet Take 1 tablet (1,000 mg total) by mouth in the morning and 1 tablet (1,000 mg total) before bedtime. 09/21/2022 Active oxyCODONE-aceta minophen (PERCOCET) 7.5-325 mg per tablet Take 1 tablet by mouth 4 (four) times daily as needed for Pain. 09/21/2022 Active aspirin 81 MG EC tablet Take 1 tablet (81 mg total) by mouth in the morning. Active empagliflozin (Jardiance) 25 mg tablet Take 1 tablet (25 mg total) by mouth in the morning. Active Active Problems Problem Noted Date Diagnosed Date Surgery follow-up 11/06/2022 Surgery, elective 11/06/2022 Lower back pain 04/20/2022 Cervical spondylosis with radiculopathy 03/26/20 Social History Tobacco Use Types Packs/Day Years Used Date Smoking Tobacco: Former Cigarettes Q uit: 1996 Smokeless Tobacco: Never Tobacco Cessation:Counseling Given: No Comments:Currently using E-cigarette, no nicotine Alcohol Use Standard Drinks/Week Comments Not Currently 0 (1 standard drink = 0.6 oz pur e alcohol) Food Insecurity Answer Date Recorded Food run out past 12 months Not on file 06/21 Food did not last past 12 months Not on file 07/09/2023 Employment Answer Date Recorded Help finding and keeping a job Not on file 0 07/09/2023 Family and Community Support Answer Malick e Recorded Help with Day to Day Activities Not on file 07/09/2023 Feeling Lonely or Isolated Not on file 07/09 Educational Attainment Answer Date Dashawn rded Speak language other than Bulgarian at home Not on file 07/09/2023 Want help with school or training Not on file 07/09/2023 Substance Use Answer Date Recorded Used prescription meds for non-medical reasons N ot on file 07/09/2023 Used illegal drugs past 12 months Not on file 07/09/2023 Sex and Gender Information Value Date Recorded Sex Assigned at Not on file Legal Sex Male 1:03 PM CDT Gender Identity Not on file Sexual Orientation Not on file Last Filed Vital Signs Vital Sign Reading Time Taken Comments Blood Pressure 134/63 11/11/2022 9:50 AM EDT Pulse 93 11/11/2022 9:50 AM EDT Temperature 37 C (98.6 F) 11/11/2022 1:29 AM EDT Respiratory Rate 18 11/11/2022 5:50 AM EDT Oxygen Saturation 94% 11/11/2022 9:50 AM EDT Inhaled Oxygen Concentration - - Weight 80.8 kg (178 lb 2.1 oz) 11/06/2022 7:55 A M EDT Height 165.1 cm (5' 5 ) 11/06/2022 7:00 AM EDT Body Mass Index 29.64 11/06/2022 7:00 AM EDT Plan of Treatment Health Maintenance Due Date Last Done Comments CT Colonography 1960 Colonoscopy 1960 Colorectal Cancer Screening 1962 FOBT/FIT 1962 Fit-DNA (Cologuard) 1962 Sigmoidoscopy 1962 Depression Screening (12+) 1974 HIV Screening 1977 Hepatitis C Screening 1980 DTAP/TDAP/TD VACCINES (1 - Tdap) 1981 Pneumococcal 50+ years (1 of 2 - PCV) 1981 Lipid Panel 1997 Tobacco Cessation Counseling and Screening (12+) 11/11/2023 11/10/2022 COVID-19 VACCINE ( season) 2025 06/04/2022, 04/23/2021, 08/28/2020 Influenza Vaccine (#1) 2025 , 04/02/2021, 04/10/2020 Respiratory Syncytial Virus (RSV) Adult or (1 - 1-dose 75+ series) 2037 Shingles Vaccine (Zoster) Completed 06/05/2021, Medical Devices Implanted Type Area Slicing Machine Feeder Device Identifier Shelf Expiration Date Model / Serial / Lot Cage Eit Llif H 10mm 8d 55-18 [id number] - [id number] Implanted:Qty : 1 on 11/06/2022 by Mary Frey MD at [facility] IMPLANTS N/A: Spine Lumbar J &J:DEPUY:DEPUY SPINE [id number] 11/19/2023 [id number] / / [id number] Mis Giovanni Ply Scrw Set Ti - - [id number] Implanted:Qty : 8 on 11/06/2022 by Mary Frey MD at [facility] IMPLANTS N/A: Back J &J:DEPUY:DEPUY SPINE 0 / 0 / Ted Pre-Lord W/Line 105mm 1797-71-105 - [id number] Implanted:Qty : 2 on 11/06/2022 by Mary Frey MD at [facility] IMPLANTS N/A: Back J &J:DEPUY:DEPUY SPINE 5 / 5 / Fibergraft Mtrx 12.5cc [id number] - [id number] Implanted:Qty : 1 on 11/06/2022 by Mary Frey MD at [facility] IMPLANTS N/A: Back [employer] 07/30/2024 [id number] / / [id number] Fibergraft Mtrx 12.5cc [id number] - [id number] Implanted:Qty : 1 on 11/06/2022 by Mary Frey MD at [facility] IMPLANTS N/A: Back [employer] 09/24/2024 [id number] / / [id number] Bone Vivigen Frmble Cell [address] [place] [address] - [id number] Implanted:Qty : 1 on 11/06/2022 by Mary Frey MD at [facility] IMPLANTS N/A: Spine Lumbar LIFENET:LIFENET TRANSPLANT SRV 10/20/2023 BL- 3 / [id number] / Bone Vivigen Frmble Cell [address] [place] [address] - [id number] Implanted:Qty : 1 on 11/06/2022 by Mary Frey MD at [facility] IMPLANTS N/A: Spine Lumbar LIFENET:LIFENET TRANSPLANT SRV 10/20/2023 BL-1600- 3 / [id number] / Cage Eit Llif H 12mm 8 55/18 [id number] - [id number] Implanted:Qty : 1 on 11/06/2022 by Mary Frey MD at [facility] IMPLANTS N/A: Spine Lumbar J &J:DEPUY:DEPUY SPINE 06/19/2024 [id number] / / [id number] Bone Crush Canc Fd 15ml Can15 - [id number] Implanted:Qty : 1 on 11/06/2022 by Mary Frey MD at [facility] IMPLANTS N/A: Back LIFENET:LIFENET TRANSPLANT SRV 02/02/2027 CAN / [id number] / Bone Vivigen Frmble Cell 10 Bl-1600-003 - [id number] Implanted:Qty : 1 on 11/06/2022 by Mary Frey MD at [facility] IMPLANTS N/A: Back LIFENET:LIFENET TRANSPLANT SRV 10/20/2023 BL-1600-00 3 / [id number] / Scr Spne Ace Fix 6x50mm 650 - [id number] Implanted:Qty : 1 on 11/06/2022 by Mary Frey MD at [facility] IMPLANTS N/A: Back J &J:DEPUY:DEPUY SPINE 0 / 0 / Scr Spne Ace Fix Fen 6x45mm 5 - [id number] Implanted:Qty : 3 on 11/06/2022 by Mary Frey MD at [facility] IMPLANTS N/A: Back J &J:DEPUY:DEPUY SPINE 5 / 5 / Scr Spne Ace Fix 7x45mm - [id number] Implanted:Qty : 4 on 11/06/2022 by Mary Frey MD at [facility] IMPLANTS N/A: Back J &J:DEPUY:DEPUY SPINE 5 / 5 / [place] [address] BLUE CROSS/BLUE SHIELD Advance Directives For more information, please contact: [phone] * Full Code (Latest Code Status on File) Date Activated Date Inactivated Comments 11/06/2022 9:15 PM 11/11/2022 1:34 PM Care Teams Pill Packer Relationship Specialty Start Date End Date Alberto Trujillo MD [address] [place] [address] [place] [address] PCP - General Adolescent Medicine 10/27/22
--- OUTSIDE RECORDS SUMMARY | 2025-06-16 12:10 | XMS_ITS | Referral Summary ---
Author Organization [employer] ([place], [place], [place], [place], [place]) Address [address] [place] [address] Care Team Providers Care Recreation Engineer Name Role Phone Alberto Trujillo MD Primary Care Provider [phone] Allergies Active Allergy Reactions Criticality Noted Date [...] Date Dashawn rded Speak language other than Greek at home Not on file 07/09/2023 Want [...] 11/06/2022 7:00 AM EDT Plan of Treatment Not on file Medical Devices Implanted Type Area Edger Runner Device Identifier Shelf Expiration Date Model / Serial / Lot Cage Eit Llif H 10mm 8d 55-18 [id number] - [id number] Implanted:Qty : 1 on 11/06/2022 by Mary Frey MD at [facility] IMPLANTS N/A: Spine Lumbar J &J:DEPUY:DEPUY SPINE [id number] 11/19/2023 [id number] / / [id number] Mis Giovanni Ply Scrw Set Ti - [id number] Implanted:Qty : 8 on 11/06/2022 by Mary Frey MD at [facility] IMPLANTS N/A: Back J &J:DEPUY:DEPUY SPINE 0 / 0 / Ted Pre-Lord W/Line 105mm 1797-71-105 - [id number] Implanted:Qty : 2 on 11/06/2022 by Mary Frey MD at [facility] IMPLANTS N/A: Back J &J:DEPUY:DEPUY SPINE 5 / 5 / Fibergraft Mtrx 12.5cc [id number] - [id number] Implanted:Qty : 1 on 11/06/2022 by Mary Frey MD at [facility] IMPLANTS N/A: Back [employer] 07/30/2024 [id number] / / [id number] Fibergraft Mtrx 12.5cc [id number] - [id number] Implanted:Qty : 1 on 11/06/2022 by Mary Frey MD at [facility] IMPLANTS N/A: Back [employer] 09/24/2024 [id number] / / [id number] Bone Vivigen Frmble Cell [address] [place] [address] - [id number] Implanted:Qty : 1 on 11/06/2022 by Mary Frey MD at [facility] IMPLANTS N/A: Spine Lumbar LIFENET:LIFENET TRANSPLANT SRV 10/20/2023 BL- 3 / [id number] / Bone Vivigen Frmble Cell [address] [place] [address] - [id number] Implanted:Qty : 1 on 11/06/2022 by Mary Frey MD at [facility] IMPLANTS N/A: Spine Lumbar LIFENET:LIFENET TRANSPLANT SRV 10/20/2023 [id number] / Cage Eit Llif H 12mm 8 55/18 [id number] - [id number] Implanted:Qty : 1 on 11/06/2022 by Mary Frey MD at [facility] IMPLANTS N/A: Spine Lumbar J &J:DEPUY:DEPUY SPINE 06/19/2024 [id number] / / [id number] Bone Crush Canc Fd 15ml Can15 - [id number] Implanted:Qty : 1 on 11/06/2022 by Mary Frey MD at [facility] IMPLANTS N/A: Back LIFENET:LIFENET TRANSPLANT SRV 02/02/2027 CAN15 / [id number] / Bone Vivigen Frmble Cell 10cc [facility]1599-003 - [id number] Implanted:Qty : 1 on 11/06/2022 by Mary Frey MD at [facility] IMPLANTS N/A: Back LIFENET:LIFENET TRANSPLANT SRV 10/20/2023 [id number] / Scr Spne Ace Fix 6x50mm - [id number] Implanted:Qty : 1 on 11/06/2022 by Mary Frey MD at [facility] IMPLANTS N/A: Back J &J:DEPUY:DEPUY SPINE 0 / 0 / Scr Spne Ace Fix Fen 6x45mm - [id number] Implanted:Qty : 3 on 11/06/2022 by Mary Frey MD at [facility] IMPLANTS N/A: Back J &J:DEPUY:DEPUY SPINE 5 / 5 / Scr Spne Ace Fix 7x45mm - [id number] Implanted:Qty : 4 on 11/06/2022 by Mary Frey MD at [facility] IMPLANTS N/A: Back J &J:DEPUY:DEPUY SPINE / 5 / Insurance BLUE CROSS/BLUE SHIELD Advance Directives For more information, please contact: [phone] * Full Code (Latest Code Status on File) Date Activated Date Inactivated Comments 11/06/2022 9:15 PM 11/11/2022 1:34 PM Care Teams Recreation Engineer Relationship Specialty Start Date End Date Alberto Trujillo MD [address] [place] [address] PCP - General Adolescent Medicine 10/27/22
--- OUTSIDE RECORDS SUMMARY | 2025-06-16 12:10 | XMS_ITS | Clinical Summary ---
[facility] Organization [facility] Address [address] [place] [address] Care Team Providers Care Roll Repairer Name Role Phone Alberto Trujillo MD Primary Care Provider [phone] Allergies Active Allergy Reactions Criticality Noted Date Comments Codeine Hives Medium 03/20/2020 Penicillins Other (See Comments) Low 03/20/2020 Mother and sister is allergic. Never had due to this reason. Medications atorvastatin (LIPITOR) 40 MG tablet Take 40 mg by mouth Daily. 02/27/2020 Active metFORMIN (GLUCOPHAGE) 500 MG tablet Take 500 mg by mouth 2 (Two) Times a Day With Meals. 02/27/2020 Active lisinopril-hydro chlorothiazide (PRINZIDE,ZESTOR ETIC) 20-25 MG per tablet Take 1 tablet by mouth Daily. Take 1/2 tablet once a day 02/27/2020 Active aspirin 81 MG chewable tablet Chew 81 mg Daily. Active gabapentin (NEURONTIN) 100 MG capsule Take 100 mg by mouth 2 (two) times a day. 06/17/2020 Active Active Problems Problem Noted Date Diagnosed Date Cervical spondylosis with radiculopathy 03/26/20 20 Social History Tobacco Use Types Packs/Day Years Used Date Smoking Tobacco: Former Cigarettes Q uit: 1999 Smokeless Tobacco: Never Alcohol Use Standard Drinks/Week Comments Yes 0 (1 standard drink = 0.6 oz pur e alcohol) 3 per week beer Abuse Screen Answer Date Recorded Unsafe at Home or Work/School Not on file Feels Threatened by Someone? Not on file 05/2023 Does Anyone Keep You from Co ntacting Others or Doint Things Outside the Home? Not on file 04/01/2023 Physical Sign of Abuse Present Not on file 1 Housing Stability Answer Date Recorded Current Living Arrangements Not on file 03/21 Potentially Unsafe Housing Conditions Not on gilbert e 04/01/2023 Family and Community Support Answer Malick e Recorded Help with Day-to-Day Activities Not on file 04/01/2023 Lonely or Isolated Not on file 04/01/2023 Employment Answer Date Recorded Do you want help finding or keeping work or a jenny b? Not on file 04/01/2023 Disabilities Answer Date Recorded Concentrating, Remembering, or Making Decisions Difficulty Not on file 04/01/2023 Doing Errands Independently Difficulty Not on fi le 04/01/2023 Education Answer Date Recorded Help with school or training? Not on file Preferred Language Not on file 04/01/2023 Sex and Gender Information Value Date Recorded Sex Assigned at Not on file Legal Sex Male 8:06 AM EDT Gender Identity Not on file Sexual Orientation Not on file Last Filed Vital Signs Vital Sign Reading Time Taken Comments Blood Pressure 142/88 05/07/2020 11:45 AM EST Pulse 75 04/15/2020 10:45 AM EDT Temperature 36.2 C (97.1 F) 06/25/2020 11:25 AM EST Respiratory Rate 18 04/15/2020 10:45 AM EDT Oxygen Saturation 91% 04/15/2020 10:45 AM EDT Inhaled Oxygen Concentration - - Weight 89.4 kg (197 lb) 06/25/2020 11:25 AM EST Height 165.1 cm (5' 5 ) 06/25/2020 11:25 AM EST Body Mass Index 32.78 06/25/2020 11:25 AM EST Plan of Treatment Health Maintenance Due Date Last Done Comments TDAP/TD VACCINES (1 - Tdap) 1981 COLOGUARD 2007 COLON CANCER SCREENING 5 YEAR SIGMOIDOSCOPY 2007 COLONOSCOPY [address] CAN[address]ER SCREENING [address] COLONOGRAPHY 2007 FECAL OCCULT BLOOD TEST 2007 FIT Testing (1 year) 2007 Pneumococcal Vaccine 50+ (1 of 1 - PCV) 2012 ZOSTER VACCINE (1 of 2) 2012 ANNUAL PHYSICAL 03/20/2020 HEPATITIS C SCREENING 03/20/2020 INFLUENZA VACCINE 01/19/2025 Medical Devices Implanted Type Area Pre Kindergarten Teacher Device Identifier Shelf Expiration Date Model / Serial / Lot Hemost Abs Surgifoam Sz100 8x12 10mm - [id number] Implanted:Qty: 1 on 04/15/2020 by Jamaal Jung MD at [facility] Implant N/A: Spine Cervical ETHICON DIV OF J AND J 1974 / / Kt Seal Hemos Abs Floseal Matrx Fast/Prep 10ml - [id number] Implanted:Qty: 1 on 04/15/2020 by Jamaal Jung MD at [facility] Implant N/A: Spine Cervical Occlutech 08/16/2021 [id number] / / [id number] Bone Lordotic Asr 5m57u56 Fzd - [id number] - [id number] Implanted:Qty: 1 on 04/15/2020 by Jamaal Jung MD at [facility] Implant N/A: Spine Cervical [employer] [id number] 08/14/2022 [id number] / [id number] / [id number] Allogrft Bone Cornerstone L/Asr Fzd 6deg [id number] - [id number] - [id number] Implanted:Qty: 1 on 04/15/2020 by Jamaal Jung MD at [facility] Implant N/A: Spine Cervical [employer] [id number] 05/26/2022 [id number] / [id number] / [id number] Scrw St Zevo 2thrd S/Tap 3.5x13mm - [id number] Implanted:Qty: 6 on 04/15/2020 by Jamaal Jung MD at [facility] Implant N/A: Spine Cervical [employer] [id number] / / Plt Acp Zevo 2lvl 37mm Ns - [id number] Implanted:Qty: 1 on 04/15/2020 by Jamaal Jung MD at [facility] Implant N/A: Spine Cervical [employer] [id number] / / Implant Description:HERNIA MESH REPA IR CARDIAC STENTS X 5 Insurance EMPLOYEE Care Teams Roll Repairer Relationship Specialty Start Date End Date Alberto Trujillo MD [address] [facility] [address] [place] [address] PCP - General Adolescent Medicine 03/19/20
--- NOTE | 2025-06-16 12:35 | XR_ITS ---
PROCEDURE INFORMATION: Exam: XR Left Shoulder Exam date and time: 06/16/2025 12:26 PM Age: 65 years old Clinical indication: Pain; Shoulder; Left; Additional info: Acute traumatic pain TECHNIQUE: Imaging protocol: Radiologic exam of the left shoulder. Views: 2 or more views. COMPARISON: CR XR CERVICAL SPINE 2V 05/01/2020 12:02 PM FINDINGS: Bones/joints: Mild degenerative changes of the acromioclavicular joint. Mild degenerative changes of the glenohumeral joint. Scapula normal. Visualized ribs and visualized pulmonary parenchyma normal. Coracoid process normal Soft tissues: Normal. IMPRESSION: 1. Mild degenerative changes of the acromioclavicular joint. 2. Mild degenerative changes of the glenohumeral joint. Consider CT if indicated
== END 2025-06-16 23:59 ==
LOC: RAD 12:08
PROVIDERS: PCP Internal Medicine Adolescent Medicine; Visit Provider Nurse Practitioner Family
DX: M19.012 Primary osteoarthritis, left shoulder
CPT/HCPCS: 73030

== ENCOUNTER 2025-06-20 14:52 | Outpatient (CLI) | payer MEDICARE, SELFPAY ==
--- NOTE | 2025-06-20 14:54 | MR_ITS ---
FINAL REPORT TECHNIQUE: Multiplanar and multisequence imaging of the shoulder was obtained without contrast. CLINICAL HISTORY: fall on 06/13/25 directly on shoulder FINDINGS: Bones and joints: There is no acute fracture, edema, or pathologic marrow replacement. There is mild glenohumeral joint degenerative disease. Acromioclavicular joint degenerative disease is present and there is osteophytosis which narrows the supraspinatus outlet. Rotator cuff: There is a full-thickness tear of the supraspinatus tendon. There is likely an obliquely oriented full-thickness tear of the infraspinatus tendon. The subscapularis tendon is partially torn. There is no fatty atrophy of the rotator cuff muscles. There is edema in the supraspinatus and infraspinatus muscles. Labrum: The biceps labral complex is intact. There is a SLAP type II tear of the superior labrum. The inferior glenohumeral ligament is intact. There is edema within the ligament and axillary recess consistent with adhesive capsulitis. The biceps tendon is intact. No biceps tendon tear is identified. Other: Very mild joint effusion is identified. There is fluid in the subdeltoid and subcoracoid bursa's. Remaining soft tissues are within normal limits. IMPRESSION: Full thickness tear of the supraspinatus tendon and likely full-thickness tear of the infraspinatus tendon. Partial tear of the subscapularis tendon. SLAP type II tear of the superior labrum. Possible adhesive capsulitis. Reviewed, Interpreted and Dictated by Patti Tran MD Transcribed by Debbi Freeman Authenticated and . [facility]
--- OUTSIDE RECORDS SUMMARY | 2025-06-20 14:54 | XMS_ITS | Referral Summary ---
Author Organization [employer] ([place], [place], [place], [place], [place]) Address [address] [place] [address] Care Team Providers Care Hospice Clinical Manager Name Role Phone Alberto Trujillo MD Primary Care Provider [phone] Allergies Active Allergy Reactions Criticality Noted Date [...] Date Dashawn rded Speak language other than Turkmen at home Not on file 07/09/2023 Want [...] on file Medical Devices Implanted Type Area Ultrasonographer Device Identifier Shelf Expiration Date Model / Serial / Lot Cage Eit Llif H 10mm 8d 55-18 [id number] - [id number] Implanted:Qty : 1 on 11/06/2022 by Mary Frey MD at [facility] IMPLANTS N/A: Spine Lumbar J &J:DEPUY:DEPUY SPINE [id number] 11/19/2023 [id number] / / [id number] Mis Giovanni Ply Scrw Set Ti - [id number] Implanted:Qty : 8 on 11/06/2022 by Mary Frey MD at [facility] IMPLANTS N/A: Back J &J:DEPUY:DEPUY SPINE 0 / 0 / Ted Pre-Lord W/Line 105mm 1797-71-105 - [id number] Implanted:Qty : 2 on 11/06/2022 by Mary Frey MD at [facility] IMPLANTS N/A: Back J &J:DEPUY:DEPUY SPINE 5 / 5 / Fibergraft Mtrx 12.5cc [id number] - [id number] Implanted:Qty : 1 on 11/06/2022 by Mary Frey MD at [facility] IMPLANTS N/A: Back PR[employer]IDYAN INC 07/30/2024 [id number] / / [id number] Fibergraft Mtrx 12.5cc [id number] - [id number] Implanted:Qty : 1 on 11/06/2022 by Mary Frey MD at [facility] IMPLANTS N/A: Back [employer] 09/24/2024 [id number] / / [id number] Bone Vivigen Frmble Cell [address] [place] [address] - [id number] Implanted:Qty : 1 on 11/06/2022 by Mary Frey MD at [facility] IMPLANTS N/A: Spine Lumbar LIFENET:LIFENET TRANSPLANT SRV 10/20/2023 BL- 3 / [id number] / Bone Vivigen Frmble Cell [address] [place] [address] - [id number] Implanted:Qty : 1 on 11/06/2022 by Mary Frey MD at [facility] IMPLANTS N/A: Spine Lumbar LIFENET:LIFENET TRANSPLANT SRV 10/20/2023 [id number] / Cage Eit Llif H 12mm 8 55/18 [id number] - [id number] Implanted:Qty : 1 on 11/06/2022 by Mary Frye MD at [facility] IMPLANTS N/A: Spine Lumbar J &J:DEPUY:DEPUY SPINE 06/19/2024 [id number] / / [id number] Bone Crush Canc Fd 15ml Can15 - [id number] Implanted:Qty : 1 on 11/06/2022 by Mary Frey MD at [facility] IMPLANTS N/A: Back LIFENET:LIFENET TRANSPLANT SRV 02/02/2027 CAN15 / [id number] / Bone Vivigen Frmble Cell 10cc [facility]1599-003 - [id number] Implanted:Qty : 1 on 11/06/2022 by Mary Frey MD at [facility] IMPLANTS N/A: Back LIFENET:LIFENET TRANSPLANT SRV 10/20/2023 [id number] / Scr Spne Ace Fix 6x50mm - [id number] Implanted:Qty : 1 on 11/06/2022 by Mary Frey MD at [facility] IMPLANTS N/A: Back J &J:DEPUY:DEPUY SPINE 0 / 0 / Scr Spne Ace Fix Fen 6x45mm - [id number] Implanted:Qty : 3 on 11/06/2022 by Mary Frey MD at [facility] IMPLANTS N/A: Back J &J:DEPUY:DEPUY SPINE 5 / 5 / Scr Spne Ace Fix 7x45mm - [id number] Implanted:Qty : 4 on 11/06/2022 by Mary Frey MD at [facility] IMPLANTS N/A: Back J &J:DEPUY:DEPUY SPINE / 5 / Insurance BLUE CROSS/BLUE SHIELD Advance Directives For more information, please contact: [phone] * Full Code (Latest Code Status on File) Date Activated Date Inactivated Comments 11/06/2022 9:15 PM 11/11/2022 1:34 PM Care Teams Hospice Clinical Manager Relationship Specialty Start Date End Date Alberto Trujillo MD [address] [place] [address] PCP - General Adolescent Medicine 10/27/22
--- OUTSIDE RECORDS SUMMARY | 2025-06-20 14:54 | XMS_ITS | Clinical Summary ---
Author Organization [facility] ([place], [place], [place], [place], [place]) Address [address] [place] [address] Care Team Providers Care Dural Mechanic Name Role Phone Alberto Trujillo MD Primary Care Provider [phone] Allergies Active Allergy Reactions Criticality Noted Date [...] Date Dashawn rded Speak language other than Chinese at home Not on file 07/09/2023 Want [...] Completed 06/05/2021, Medical Devices Implanted Type Area Renewal Specialist Device Identifier Shelf Expiration Date Model / Serial / Lot Cage Eit Llif H 10mm 8d 55-18 [id number] - [id number] Implanted:Qty : 1 on 11/06/2022 by Mary Frey MD at [facility] IMPLANTS N/A: Spine Lumbar J &J:DEPUY:DEPUY SPINE [id number] 11/19/2023 [id number] / / [id number] Mis Giovanni Ply Scrw Set Ti - - [id number] Implanted:Qty : 8 on 11/06/2022 by Mary Frey MD at [facility] IMPLANTS N/A: Back J &J:DEPUY:DEPUY SPINE 0 / 0 / Ted Pre-Lord W/Line 105mm 1797-71-105 - [id number] Implanted:Qty : 2 on 11/06/2022 by Mary Frey MD at [facility] IMPLANTS N/A: Back J &J:DEPUY:DEPUY SPINE 5 / 5 / Fibergraft Mtrx 12.5cc [id number] - [id number] Implanted:Qty : 1 on 11/06/2022 by Mary Frey MD at [facility] IMPLANTS N/A: Back [employer] 07/30/2024 [id number] / / [id number] Fibergraft Mtrx 12.5cc [id number] - [id number] Implanted:Qty : 1 on 11/06/2022 by Mary Frey MD at [facility] IMPLANTS N/A: Back [employer] 09/24/2024 [id number] / / [id number] Bone Vivigen Frmble Cell [address] [place] [address] - [id number] Implanted:Qty : 1 on 11/06/2022 by Mary Frey MD at [facility] IMPLANTS N/A: Spine Lumbar LIFENET:LIFENET TRANSPLANT SRV 10/20/2023 BL- 3 / [id number] / Bone Vivigen Frmble Cell [address] [place] [address] - [id number] Implanted:Qty : 1 on 11/06/2022 by Mary Frey MD at [facility] IMPLANTS N/A: Spine Lumbar LIFENET:LIFENET TRANSPLANT SRV 10/20/2023 BL-1600- 3 / [id number] / Cage Eit Llif H 12mm 8 55/18 [id number] - [id number] Implanted:Qty : 1 on 11/06/2022 by Mary Frey MD at [facility] IMPLANTS N/A: Spine Lumbar J &J:DEPUY:DEPUY SPINE 06/19/2024 [id number] / / [id number] Bone Crush Canc Fd 15ml Can15 - [id number] Implanted:Qty : 1 on 11/06/2022 by Mary Frey MD at [facility] IMPLANTS N/A: Back LIFENET:LIFENET TRANSPLANT SRV 02/02/2027 CAN / [id number] / Bone Vivigen Frmble Cell 10 Bl-1600-003 - [id number] Implanted:Qty : 1 on 11/06/2022 by Mary Frey MD at [facility] IMPLANTS N/A: Back LIFENET:LIFENET TRANSPLANT SRV 10/20/2023 BL-1600-00 3 / [id number] / Scr Spne Ace Fix 6x50mm 650 - [id number] Implanted:Qty : 1 on 11/06/2022 by Mary Frey MD at [facility] IMPLANTS N/A: Back J &J:DEPUY:DEPUY SPINE 0 / 0 / Scr Spne Ace Fix Fen 6x45mm 5 - [id number] Implanted:Qty : 3 on 11/06/2022 by Mary Frey MD at [facility] IMPLANTS N/A: Back J &J:DEPUY:DEPUY SPINE 5 / 5 / Scr Spne Ace Fix 7x45mm - [id number] Implanted:Qty : 4 on 11/06/2022 by Mary Frey MD at [facility] IMPLANTS N/A: Back J &J:DEPUY:DEPUY SPINE 5 / 5 / Insurance [place] [address] BLUE CROSS/BLUE SHIELD Advance Directives For more information, please contact: [phone] * Full Code (Latest Code Status on File) Date Activated Date Inactivated Comments 11/06/2022 9:15 PM 11/11/2022 1:34 PM Care Teams Dural Mechanic Relationship Specialty Start Date End Date Alberto Trujillo MD [address] [place] [address] [place] [address] PCP - General Adolescent Medicine 10/27/22
--- OUTSIDE RECORDS SUMMARY | 2025-06-20 14:54 | XMS_ITS | Clinical Summary ---
[facility] Organization [facility] Address [address] [place] [address] Care Team Providers Care Second Grade Teacher Name Role Phone Alberto Trujillo MD Primary Care Provider [phone] Allergies Active Allergy Reactions Criticality Noted Date [...] VACCINE 01/19/2025 Medical Devices Implanted Type Area Speed Winder Device Identifier Shelf Expiration Date Model / Serial / Lot Hemost Abs Surgifoam Sz100 8x12 10mm - [id number] Implanted:Qty: 1 on 04/15/2020 by Jamaal Jung MD at [facility] Implant N/A: Spine Cervical [employer] J AND J 1974 / / Kt Seal Hemos Abs Floseal Matrx Fast/Prep 10ml - [id number] Implanted:Qty: 1 on 04/15/2020 by Jamaal Jung MD at [facility] Implant N/A: Spine Cervical [employer] 08/16/2021 [id number] / / [id number] Bone Lordotic Asr 1c77b82 Fzd - [id number] - [id number] Implanted:Qty: 1 on 04/15/2020 by Jamaal Jung MD at [facility] Implant N/A: Spine Cervical [employer] [id number] 08/14/2022 [id number] / [id number] / [id number] Allogrft Bone Cornerstone L/Asr Fzd 6deg [id number] - [id number] - [id number] Implanted:Qty: 1 on 04/15/2020 by Jamaal Jung MD at [facility] Implant N/A: Spine Cervical [employer] [id number] 05/26/2022 [id number] / [id number] / [id number] Scrw St Zevo 2thrd S/Tap 3.5x13mm - [id number] Implanted:Qty: 6 on 04/15/2020 by Jamaal Jung MD at [facility] Implant N/A: Spine Cervical [employer] [id number] / / Plt Acp Zevo 2lvl 37mm Ns - [id number] Implanted:Qty: 1 on 04/15/2020 by Jamaal Jung MD at [facility] Implant N/A: Spine Cervical [employer] [id number] / / Implant Description:HERNIA MESH REPA IR CARDIAC STENTS X 5 Insurance EMPLOYEE Care Teams Second Grade Teacher Relationship Specialty Start Date End Date Alberto Trujillo MD [address] [facility] [address] [place] [address] PCP - General Adolescent Medicine 03/19/20
== END 2025-06-20 23:59 | disposition home or self-care (01) ==
PROVIDERS: PCP Internal Medicine Adolescent Medicine; Visit Provider Nurse Practitioner Family
DX: S46.012A Strain of muscle(s) and tendon(s) of the rotator cuff of left shoulder, initial encounter (principal); S43.432A Superior glenoid labrum lesion of left shoulder, initial encounter; M12.812 Other specific arthropathies, not elsewhere classified, left shoulder; R93.6 Abnormal findings on diagnostic imaging of limbs
CPT/HCPCS: 73221